=== PATIENT | male | born 1985 | race Caucasian/White ===

== ENCOUNTER 2020-08-12 06:06 | Day surgery (SDC) | payer OTHER, SELFPAY ==
[2020-08-07 11:06] VITALS: BMI 27.4
== END 2020-08-12 23:59 ==
LOC: HO.SSS 06:07
PROVIDERS: Visit Provider Urology
DX: N47.1 Phimosis (principal); Z53.9 Procedure and treatment not carried out, unspecified reason

== ENCOUNTER 2020-10-02 11:12 | Outpatient (REF) | payer OTHER, SELFPAY | END 2020-10-02 11:13 | disposition home or self-care (01) | LOC: HO.LAB 11:12 | PROVIDERS: PCP Internal Medicine; Visit Provider Internal Medicine | DX: Z20.828 Contact with and (suspected) exposure to other viral communicable diseases (principal) | CPT/HCPCS: C9803; U0003 ==

== ENCOUNTER 2021-10-18 01:09 | Emergency (ER) | payer OTHER, SELFPAY ==
--- NOTE | ~2021-10-18 | XR_ITS ---
EXAMINATION: XR CHEST CLINICAL INFORMATION: Shortness of breath COMPARISON: 09.23.2015 TECHNIQUE: Frontal view of the chest was obtained. FINDINGS: No significant abnormality is noted involving the heart, lungs, mediastinum, bony thorax or soft tissues. XR/XR chest 1V IMPRESSION: Unremarkable examination.
[2021-10-18 01:34] VITALS: BP 101/74; PULSE 94; RESP 20; TEMP 36.3; O2SAT 98; BMI 26.6
--- NOTE | 2021-10-18 01:41 | ED_ITS ---
HPI - URI/Sore Throat General Chief Complaint: Upper Respiratory Symptoms Stated Complaint: sob, COVID+ as of 10/14 Time Seen by Provider: 10/18/21 01:40 Source: patient Limitations: no limitations History of Present Illness HPI Narrative: This is a 36-year-old male who became ill 3 days ago with a cough and fever and cold symptoms. The patient has tested positive for COVID. States the fevers have mostly past. Today he noted at times that he felt like he could not quite catch his breath. He denies chest pain per se. He was coughing more yesterday. He denies any vomiting or diarrhea or abdominal pain Related Data Home Medications Medication Instructions Recorded Confirmed No Known Home Meds 08/07/20 08/07/20 Allergies Allergy/AdvReac Type Severity Reaction Status Date / Time No Known Allergies Allergy Verified 10/18/21 01:37 [No Known Allergies*] Review of Systems Constitutional: Constitutional: Reports fatigue and Reports fever(s) Eyes: Eyes: Reports no additional eye complaints ENT: Reports nasal congestion Cardiovascular: Cardiovascular: Reports no additional cardiovascular complaints and Reports dyspnea Respiratory: Respiratory: Reports cough and Reports dyspnea Gastrointestinal: Gastrointestinal: Reports no additional gastrointestinal complaints Neurologic: Denies Sensory deficit (Neuro) Endocrine: Endocrine: Reports fatigue [facility] Past Medical History Medical History (Updated 10/18/21 @ 01:56 by Erick Wallace MD) Anxiety Renal stones Surgical History (Updated 08/07/20 @ 11:03 by Priscilla Drake RN) Hx of cystoscopy Social History Social History Advance Directives: No Physical Exam Vital Signs: Vital Signs: Last Vital Signs Temp 97.4 F 10/18/21 01:34 Pulse 94 10/18/21 01:34 Resp 20 10/18/21 01:34 BP 101/74 10/18/21 01:34 Pulse Ox 98 10/18/21 01:34 BMI result Body Mass Index 26.6 Const: General: cooperative, no acute distress and alert Orientation/consciousness: patient oriented x3 HENMT: Head: Yes normal to inspection Eyes: General: appearance normal, both eyes and all related structures Eyelids: Yes eyelids normal Conjunctivae: conjunctivae normal Pupils: Equal, round and reactive pupils present Neck: Neck: Yes normal visual inspection and Yes supple Chest: Chest palpation & inspection: normal inspection of the chest Resp: Effort & Inspection: normal respiratory effort Auscultation: clear to auscultation bilaterally Cardio: Rate: regular rate Rhythm: regular rhythm Heart sounds: S1 normal heart sound present, S2 normal heart sound present, no gallops, no murmurs and no rubs GI: Palpation (GI): Soft to palpation, nontender and Other GI palpation findin gs present (Non-distended) Auscultation: normal bowel sounds Skin: General skin exam: no rashes or lesions noted Neuro: General: patient oriented x3, no focal motor deficits and CN's II-XI intact bilaterally Cranial nerves: Yes Equal, round and reactive pupils present Cognition (Neuro): normal cognition Motor exam (neuro): 5/5 motor strength present throughout Sensory Exam: No Sensory deficit (Neuro) Extrem: General: Yes normal to inspection and Yes no pedal edema Psych: Appearance: grossly normal Affect: normal affect MDM - URI/Sore Throat MDM Narrative Medical decision making narrative: Patient with COVID for 3 days, felt somewhat dyspneic today but also appears somewhat anxious. Pulse oximetry 98% on room air. Chest x-ray negative. Patient is safe for outpatient follow-up Imaging Data Chest x-ray: Radiologist's impression: FINDINGS: No significant abnormality is noted involving the heart, lungs, mediastinum, bony thorax or soft tissues. XR/XR chest 1V IMPRESSION: Unremarkable examination. ? Discharge Plan Discharge Clinical Impression: COVID-19 Patient Disposition: Home, Self-Care Instructions: COVID-19 (Coronavirus Disease 2019) (ED) Additional Instructions: Drink plenty of fluids. Quarantine for another 3-4 days. Use [id number] cough medicine such as Robitussin DM as needed. Use Tylenol for any aches or fever. Return for any worsened symptoms such as or shortness of breath. Consider purchasing a pulse oximeter so you can check your oxygen level once or twice a day. Your oxygen level tonight was excellent at 98%, and your chest x- ray was normal. Prescriptions: No Action No Known Home Meds RF: 0
== END 2021-10-18 02:10 | disposition home or self-care (01) ==
PROVIDERS: Emergency Provider Emergency Medicine; PCP Internal Medicine
DX: U07.1 COVID-19 (principal); R06.02 Shortness of breath; R50.9 Fever, unspecified
CPT/HCPCS: 71045; 99283

== ENCOUNTER 2021-10-21 04:16 | Emergency (ER) | payer OTHER, SELFPAY ==
[2021-10-21 04:44] VITALS: BP 122/93; PULSE 74; RESP 20; TEMP 36.3; O2SAT 100; BMI 25.7
[2021-10-21 05:03] LABS: MANUAL DIFF FLAG NO
[2021-10-21 05:05] LABS: Basophils Percent Auto 0.3 % (0-2); Eosinophils Absolute Auto 0.1 X10*3/uL (0.0-0.4); Eosinophils Percent Auto 2.5 % (0-4); Hematocrit 50.2 % (42.0-52.0); Hemoglobin 17.2 g/dl (14.0-18.0); Imm Gran Abs Auto 0.01 X10*3/uL (0.00-0.03); Imm Gran Pct Auto 0.3 % (0.0-0.4); Lymphocytes Percent Auto 53.7 % (20-40); Mean Corpuscular HGB Conc 34.3 g/dl (31.0-36.0); Mean Corpuscular Hemoglobin 29.1 pg (27.0-33.0); Mean Corpuscular Volume 84.9 fL (80.0-98.0); Mean Platelet Volume 9.2 fL (9.4-12.4); Monocytes Absolute Auto 0.4 X10*3/uL (0.1-1.2); Monocytes Percent Auto 10.2 % (2-11); Neutrophils Absolute Auto 1.2 x10*3/uL (2.0-8.3); Platelet Count 228 X10*3/uL (160-400); Red Blood Count 5.91 X10*6/uL (4.60-5.80); Red Cell Distribution Width 12.8 % (11.0-16.0); White Blood Count 3.6 X10*3/uL (4.8-10.8)
[2021-10-21 05:11] LABS: COVID-19 Test Positive (Negative)
[2021-10-21 05:29] LABS: Alanine Aminotransferase 110 U/L (0-40); Albumin Level 4.4 g/dL (3.5-5.0); Alkaline Phosphatase 93 U/L (39-117); Anion Gap 13 (12-20); Aspartate Amino Transferase 52 U/L (5-37); Bilirubin Total 0.9 mg/dL (0.0-1.0); Blood Urea Nitrogen 13 mg/dL (9-16); Calcium 9.3 mg/dL (8.4-10.2); Carbon Dioxide 28 mmol/L (22-29); Chloride 103 mmol/L (96-108); Creatinine Clr Calc Pharmacy 87.2; Estimated Glomerular Filt Rate > 60; Glucose Random 122 mg/dL (60-115); Lipase 18 U/L (8-78); Potassium 3.8 mmol/L (3.3-5.1); Sodium 140 mmol/L (135-145); Total Protein 7.2 g/dL (6.5-8.0)
== END 2021-10-21 06:24 | disposition left against medical advice (07) ==
PROVIDERS: Emergency Provider Emergency Medicine; PCP Internal Medicine
DX: R10.31 Right lower quadrant pain (principal); R11.0 Nausea; R31.9 Hematuria, unspecified; R30.0 Dysuria; M54.50 Low back pain, unspecified; Z20.822 Contact with and (suspected) exposure to COVID-19; Z79.899 Other long term (current) drug therapy
CPT/HCPCS: 36415; 80053; 83690; 85025; 87635; 99282; 99283

== ENCOUNTER 2021-10-21 07:56 | Emergency (ER) | payer OTHER, SELFPAY ==
--- NOTE | ~2021-10-21 | CT_ITS ---
EXAMINATION: CT ABDOMEN AND PELVIS WITHOUT CONTRAST CLINICAL INFORMATION: Right flank pain COMPARISON: Previous CT of the abdomen and pelvis most recent May 2020 TECHNIQUE: Multidetector volumetric imaging was performed from the superior aspect of the liver through the pubic symphysis. Sagittal and coronal reformatted images were obtained on the technologist's workstation. This CT examination was performed using dose optimization techniques as appropriate, variously including the following: *Automated exposure control *Adjustment of mA and/or kV according to patient size (this includes techniques or standardized protocols for targeted exams where dose is matched to indication/reason for exam; i.e. extremities or head) *Use of iterative reconstruction technique DLP: 505 mGy-cm FINDINGS: LUNG BASES: There are patchy peripheral groundglass opacities seen at the lung bases. This is a nonspecific appearance however Covid infection should be excluded. This is new from previous chest CT. LIVER, GALLBLADDER, AND BILIARY TREE: The liver is normal in size, shape, and attenuation. Small stable liver lesion peripheral right lobe. No biliary ductal dilatation is present. The gallbladder is unremarkable with no evidence of radiopaque gallstones, gallbladder wall thickening, or obvious pericholecystic inflammatory changes. PANCREAS: Unremarkable. SPLEEN: Unremarkable. ADRENAL GLANDS: Unremarkable. KIDNEYS AND URETERS: There are multiple bilateral renal stones. Largest stone measures 5 x 6 mm in the upper pole of the right kidney. There is mild right hydronephrosis and proximal ureteral dilatation from a 3 x 4 mm right mid ureteral stone BLADDER: Unremarkable. GASTROINTESTINAL TRACT: The small and large bowel are unremarkable. The appendix is unremarkable. ABDOMINAL WALL: No significant hernia is appreciated. LYMPH NODES: Normal. VASCULAR: Unremarkable. PELVIC VISCERA: Unremarkable. OSSEOUS STRUCTURES: Unremarkable. CT/CT abdomen pelvis wo con IMPRESSION: Bilateral renal stones. Mild right hydronephrosis and ureteral dilatation from a 3 x 4 mm right mid ureteral stone Peripheral groundglass opacities at the lung bases. This is a nonspecific finding however Covid infection should be excluded. Fleischner guidelines were followed.
[2021-10-21 07:59] VITALS: BP 149/99; PULSE 88; RESP 19; TEMP 36.1; O2SAT 98; BMI 27.4
--- NOTE | 2021-10-21 08:32 | ED_ITS ---
HPI - Male Genitourinary General Chief complaint: Urogenital-Male Stated complaint: Kidney stones Time Seen by Provider: 10/21/21 08:32 Source: patient Mode of arrival: ambulatory History of Present Illness HPI Narrative: this is a 36 years old patient presented to the ED with a chief complaint of right flank pain since yesterday, he states that he has history of kidney stone is been vomiting as well MD Complaint: dysuria Onset (ago): day(s) (1) Severity: moderate Severity scale (1-10): 5 Quality: aching Relieving factors: none and urination Exacerbating factors: none Context: new medication Related Data Previous Rx's Medication Instructions Recorded ibuprofen 800 mg tablet 800 mg PO TID PRN #20 tab 10/21/21 oxycodone-acetaminophen 5 mg-325 1 tab PO Q8H PRN #15 tab 10/21/21 mg tablet (Percocet) tamsulosin 0.4 mg capsule (Flomax) 0.4 mg PO DAILY #10 cap 10/21/21 Allergies Allergy/AdvReac Type Severity Reaction Status Date / Time No Known Allergies Allergy Verified 10/21/21 04:47 [No Known Allergies*] Review of Systems Review of Systems: Yes all other systems are reviewed and are negative Constitutional: Constitutional: Reports no additional constitutional complaints ENT: Reports system reviewed and no additional complaints, except as documented Musculoskeletal: Musculoskeletal: Reports no additional musculoskeletal complaints PMFSH Past Medical History Medical History Anxiety Renal stones Surgical History Hx of cystoscopy Social History Social History Alcohol intake: unknown Patient Tobacco Use Status: Tobacco use Unknown Use of substances other than those prescribed or required for medical reasons: Unknown Advance Directives: No Advance Directives Information Provided: No Physical Exam Vital Signs: Vital Signs: Last Vital Signs Temp 97 F 10/21/21 07:59 Pulse 88 10/21/21 07:59 Resp 19 10/21/21 07:59 BP 149/99 H 10/21/21 07:59 Pulse Ox 98 10/21/21 07:59 BMI result Body Mass Index 27.4 Const: General: cooperative and alert Nutritional Appearance: average body habitus Orientation/consciousness: patient oriented x3 Limitations: no limitations HENMT: Head: Yes normal to inspection General nose exam: Normal external nose present Face and sinus: Yes normal facial exam Throat: Yes posterior oropharynx normal Neck: Neck: Yes normal visual inspection, Yes full ROM and Yes no lympha denopathy Thyroid: Thyroid normal Chest: Chest palpation & inspection: normal inspection of the chest Resp: Effort & Inspection: normal respiratory effort and able to speak in complete sentences Auscultation: clear to auscultation bilaterally Cardio: Jugular venous distension: no JVD Rate: regular rate Rhythm: regular rhythm GI: Inspection: Yes normal to inspection Palpation (GI): Soft to palpation, not firm, nontender and Other GI palpation findings present (tenderness rt flank) Neuro: General: patient oriented x3 Course Reevaluation(s) Reevaluation #1: reexamined and 11:05 feeling much better Reevaluation #2: pain free at this time will d/c home MDM - Male Genitourinary Lab Data Result diagrams: 10/21/21 08:54 10/21/21 08:54 Labs: Lab Results 10/21/21 10/21/21 10/21/21 Range/Units 08:54 08:54 12:23 WBC 5.7 (4.8-10.8) X10*3/uL RBC 6.10 H (4.60-5.80) X10*6/uL Hgb 17.4 (14.0-18.0) g/dl Hct 51.8 (42.0-52.0) % MCV 84.9 (80.0-98.0) fL MCH 28.5 (27.0-33.0) pg MCHC 33.6 (31.0-36.0) g/dl RDW 12.8 (11.0-16.0) % Plt Count 232 (160-400) X10*3/uL MPV 9.0 L (9.4-12.4) fL Immature Gran % (Auto) 0.2 (0.0-0.4) % Neut % (Auto) 81.5 H (45-73) % Lymph % (Auto) 12.9 L (20-40) % [place] % (Auto) 5.2 (2-11) % Eos % (Auto) 0.0 (0-4) % Baso % (Auto) 0.2 (0-2) % Lymph # (Auto) 0.7 L (1.2-4.9) X10*3/uL [place] # (Auto) 0.3 (0.1-1.2) X10*3/uL Eos # (Auto) 0.0 (0.0-0.4) X10*3/uL Baso # (Auto) 0.0 (0.0-0.2) X10*3/uL Abs Immat Gran (auto) 0.01 (0.00-0.03) X10*3/uL Absolute Neuts (auto) 4.7 (2.0-8.3) x10*3/uL Absolute Nucleated RBC 0.000 (0.0-0.012) X10*3/uL Nucleated RBC % (auto) 0.0 (0.0-0.2) /100WBC Sodium 140 (135-145) mmol/L Potassium 4.6 D (3.3-5.1) mmol/L Chloride 102 (96-108) mmol/L Carbon Dioxide 30 H (22-29) mmol/L Anion Gap 13 (12-20) BUN 15 (9-16) mg/dL Creatinine 1.15 (0.5-1.4) mg/dL Estim Creat Clear Calc 83.9 Estimated GFR > 60 Random Glucose 132 H (60-115) mg/dL Calcium 9.5 (8.4-10.2) mg/dL Total Bilirubin 1.0 (0.0-1.0) mg/dL AST 50 H (5-37) U/L ALT 111 H (0-40) U/L Alkaline Phosphatase 94 (39-117) U/L Total Protein 7.5 (6.5-8.0) g/dL Albumin 4.6 (3.5-5.0) g/dL Urine Color YELLOW Urine Appearance CLEAR Urine pH 6.0 (5.0-8.0) Ur Specific [place] 1.025 (1.005-1.025) Urine Protein 1+ H (NEG-TRACE) MG/DL Urine Glucose (UA) NEG (NEG) MG/DL Urine Ketones 5 (NEG) MG/DL Urine Blood 2+ H (NEG) Urine Nitrite NEG (NEG) Ur Leukocyte Esterase NEG (NEG) Urine RBC 10-14 H (0) /HPF Urine WBC 0-2 (0-4) /HPF Ur Squamous Epith Cells TRACE /LPF Amorphous Sediment 1+ /LPF Urine Bacteria NONE /LPF Urine Mucus 1+ /LPF Imaging Data CT scan - abdomen: Radiologist's impression: ADRENAL GLANDS: Unremarkable.? KIDNEYS AND URETERS: There are multiple bilateral renal stones. Largest stone measures 5 x 6 mm in the upper pole of the right kidney. There is mild right hydronephrosis and proximal ureteral dilatation from a 3 x 4 mm right mid ureteral stone BLADDER: Unremarkable.? GASTROINTESTINAL TRACT: The small and large bowel are unremarkable. The appendix is unremarkable.? ABDOMINAL WALL: No significant hernia is appreciated.? LYMPH NODES: Normal. VASCULAR: Unremarkable. PELVIC VISCERA: Unremarkable.? OSSEOUS STRUCTURES: Unremarkable.? CT/CT abdomen pelvis wo con IMPRESSION: Bilateral renal stones. Mild right hydronephrosis and ureteral dilatation from a 3 x 4 mm right mid ureteral stone ? Peripheral groundglass opacities at the lung bases. This is a nonspecific finding however Covid infection should be excluded. ? Fleischner guidelines were followed. Discharge Plan Discharge Clinical Impression: Renal colic on right side Patient Disposition: Home, Self-Care Instructions: Renal Colic (ED) Prescriptions: New tamsulosin [Flomax] 0.4 mg capsule 0.4 mg PO DAILY Qty: 10 RF: 0 oxycodone-acetaminophen [Percocet] 5-325 mg tablet 1 tab PO Q8H PRN (Reason: pain) Qty: 15 RF: 0 ibuprofen 800 mg tablet 800 mg PO TID PRN (Reason: pain) Qty: 20 RF: 0 Referrals: Juan Contreras MD [Physician] - 2 days
[2021-10-21 08:59] LABS: MANUAL DIFF FLAG NO
[2021-10-21] MEDS: ondansetron HCL 4 MG/2 ML VIAL IVPUSH (09:01)
[2021-10-21] MEDS: 0.9 % Sodium Chloride 1,000 ML 999 ML IVCONT ×2 (09:01→11:11)
[2021-10-21] MEDS: Ketorolac Tromethamine 30 MG/ML VIAL IVPUSH (09:01)
[2021-10-21 09:03] LABS: Basophils Percent Auto 0.2 % (0-2); Hematocrit 51.8 % (42.0-52.0); Hemoglobin 17.4 g/dl (14.0-18.0); Imm Gran Abs Auto 0.01 X10*3/uL (0.00-0.03); Imm Gran Pct Auto 0.2 % (0.0-0.4); Lymphocytes Absolute Auto 0.7 X10*3/uL (1.2-4.9); Lymphocytes Percent Auto 12.9 % (20-40); Mean Corpuscular HGB Conc 33.6 g/dl (31.0-36.0); Mean Corpuscular Hemoglobin 28.5 pg (27.0-33.0); Mean Corpuscular Volume 84.9 fL (80.0-98.0); Monocytes Absolute Auto 0.3 X10*3/uL (0.1-1.2); Monocytes Percent Auto 5.2 % (2-11); Neutrophils Absolute Auto 4.7 x10*3/uL (2.0-8.3); Neutrophils Percent Auto 81.5 % (45-73); Platelet Count 232 X10*3/uL (160-400); Red Cell Distribution Width 12.8 % (11.0-16.0); White Blood Count 5.7 X10*3/uL (4.8-10.8)
[2021-10-21 09:24] LABS: Alanine Aminotransferase 111 U/L (0-40); Albumin Level 4.6 g/dL (3.5-5.0); Alkaline Phosphatase 94 U/L (39-117); Anion Gap 13 (12-20); Aspartate Amino Transferase 50 U/L (5-37); Blood Urea Nitrogen 15 mg/dL (9-16); Calcium 9.5 mg/dL (8.4-10.2); Carbon Dioxide 30 mmol/L (22-29); Chloride 102 mmol/L (96-108); Creatinine Clr Calc Pharmacy 83.9; Estimated Glomerular Filt Rate > 60; Glucose Random 132 mg/dL (60-115); Potassium 4.6 mmol/L (3.3-5.1); Sodium 140 mmol/L (135-145); Total Protein 7.5 g/dL (6.5-8.0)
[2021-10-21] MEDS: HYDROmorphone HCl 0.5 MG/0.5 ML SYRINGE IVPUSH ×2 (10:06→11:57)
--- NOTE | 2021-10-21 10:19 | PC.NURSE ---
medicatd further per emar, feeling better after dilaudid. wctm for dc needs.
[2021-10-21] MEDS: Tamsulosin HCL 0.4 MG CAPSULE PO (11:57)
[2021-10-21 12:29] LABS: Appearance Urine CLEAR; Color Urine YELLOW; Glucose Urine UA NEG (NEG); Leukocyte Esterase Urine NEG (NEG); Nitrite Urine NEG (NEG); Specific Gravity - Urine 1.025 (1.005-1.025); UACC Culture Trigger NO; Urine Blood 2+ (NEG); Urine Ketones 5 MG/DL (NEG); Urine Protein 1+ MG/DL (NEG-TRACE)
[2021-10-21 12:46] LABS: Squamous Epithelial Cell Urine TRACE /LPF
[2021-10-21 12:47] LABS: WBC Urine 0-2 /HPF (0-4)
[2021-10-21 12:48] LABS: Amorphous Sediment Urine 1+ /LPF; Mucus Urine 1+ /LPF
--- NOTE | 2021-10-21 13:37 | ED.MALEGU ---
HPI - Male Genitourinary General Chief complaint: Urogenital-Male Stated complaint: Kidney stones Time Seen by Provider: 10/21/21 08:32 Source: patient Mode of arrival: ambulatory History of Present Illness Severity: moderate Quality: aching Relieving factors: none and urination Exacerbating factors: none Related Data Previous Rx's Medication Instructions Recorded ibuprofen 800 mg tablet 800 mg PO TID PRN #20 tab 10/21/21 oxycodone-acetaminophen 5 mg-325 1 tab PO Q8H PRN #15 tab 10/21/21 mg tablet (Percocet) tamsulosin 0.4 mg capsule (Flomax) 0.4 mg PO DAILY #10 cap 10/21/21 Allergies Allergy/AdvReac Type Severity Reaction Status Date / Time No Known Allergies Allergy Verified 10/21/21 04:47 [No Known Allergies*] PMFSH Past Medical History Medical History Anxiety Renal stones Surgical History Hx of cystoscopy Social History Social History Alcohol intake: unknown Patient Tobacco Use Status: Tobacco use Unknown Use of substances other than those prescribed or required for medical reasons: Unknown Advance Directives: No Advance Directives Information Provided: No Physical Exam Vital Signs: Vital Signs: Last Vital Signs Temp 97 F 10/21/21 07:59 Pulse 88 10/21/21 07:59 Resp 19 10/21/21 07:59 BP 149/99 H 10/21/21 07:59 Pulse Ox 98 10/21/21 07:59 BMI result Body Mass Index 27.4 Course Reevaluation(s) Reevaluation #1: pain free at this time,tolerated po well ct showed 3X4 mm stone mild rt hydro MDM - Male Genitourinary Lab Data Result diagrams: 10/21/21 08:54 10/21/21 08:54 Labs: Lab Results 10/21/21 10/21/21 10/21/21 Range/Units 08:54 08:54 12:23 WBC 5.7 (4.8-10.8) X10*3/uL RBC 6.10 H (4.60-5.80) X10*6/uL Hgb 17.4 (14.0-18.0) g/dl Hct 51.8 (42.0-52.0) % MCV 84.9 (80.0-98.0) fL MCH 28.5 (27.0-33.0) pg MCHC 33.6 (31.0-36.0) g/dl RDW 12.8 (11.0-16.0) % Plt Count 232 (160-400) X10*3/uL MPV 9.0 L (9.4-12.4) fL Immature Gran % (Auto) 0.2 (0.0-0.4) % Neut % (Auto) 81.5 H (45-73) % Lymph % (Auto) 12.9 L (20-40) % [place] % (Auto) 5.2 (2-11) % Eos % (Auto) 0.0 (0-4) % Baso % (Auto) 0.2 (0-2) % Lymph # (Auto) 0.7 L (1.2-4.9) X10*3/uL [place] # (Auto) 0.3 (0.1-1.2) X10*3/uL Eos # (Auto) 0.0 (0.0-0.4) X10*3/uL Baso # (Auto) 0.0 (0.0-0.2) X10*3/uL Abs Immat Gran (auto) 0.01 (0.00-0.03) X10*3/uL Absolute Neuts (auto) 4.7 (2.0-8.3) x10*3/uL Absolute Nucleated RBC 0.000 (0.0-0.012) X10*3/uL Nucleated RBC % (auto) 0.0 (0.0-0.2) /100WBC Sodium 140 (135-145) mmol/L Potassium 4.6 D (3.3-5.1) mmol/L Chloride 102 (96-108) mmol/L Carbon Dioxide 30 H (22-29) mmol/L Anion Gap 13 (12-20) BUN 15 (9-16) mg/dL Creatinine 1.15 (0.5-1.4) mg/dL Estim Creat Clear Calc 83.9 Estimated GFR > 60 Random Glucose 132 H (60-115) mg/dL Calcium 9.5 (8.4-10.2) mg/dL Total Bilirubin 1.0 (0.0-1.0) mg/dL AST 50 H (5-37) U/L ALT 111 H (0-40) U/L Alkaline Phosphatase 94 (39-117) U/L Total Protein 7.5 (6.5-8.0) g/dL Albumin 4.6 (3.5-5.0) g/dL Urine Color YELLOW Urine Appearance CLEAR Urine pH 6.0 (5.0-8.0) Ur Specific [place] 1.025 (1.005-1.025) Urine Protein 1+ H (NEG-TRACE) MG/DL Urine Glucose (UA) NEG (NEG) MG/DL Urine Ketones 5 (NEG) MG/DL Urine Blood 2+ H (NEG) Urine Nitrite NEG (NEG) Ur Leukocyte Esterase NEG (NEG) Urine RBC 10-14 H (0) /HPF Urine WBC 0-2 (0-4) /HPF Ur Squamous Epith Cells TRACE /LPF Amorphous Sediment 1+ /LPF Urine Bacteria NONE /LPF Urine Mucus 1+ /LPF Imaging Data CT scan - abdomen: Radiologist's impression: dilatation from a 3 x 4 mm right mid ureteral stone BLADDER: Unremarkable.? GASTROINTESTINAL TRACT: The small and large bowel are unremarkable. The appendix is unremarkable.? ABDOMINAL WALL: No significant hernia is appreciated.? LYMPH NODES: Normal. VASCULAR: Unremarkable. PELVIC VISCERA: Unremarkable.? OSSEOUS STRUCTURES: Unremarkable.? CT/CT abdomen pelvis wo con IMPRESSION: Bilateral renal stones. Mild right hydronephrosis and ureteral dilatation from a 3 x 4 mm right mid ureteral stone ? Peripheral groundglass opacities at the lung bases. This is a nonspecific finding however Covid infection should be excluded. ? Fleischner guidelines were followed. Dictated By: Hortensia Arevalo MD Signed By: <Electronically signed by Hortensia Arevalo MD in [place]> 10/21/2137 DD/ 7 TD/TT:? 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
== END 2021-10-21 13:57 | disposition home or self-care (01) ==
PROVIDERS: Emergency Provider Emergency Medicine; PCP Internal Medicine
DX: N23 Unspecified renal colic (principal); Z79.899 Other long term (current) drug therapy
CPT/HCPCS: 36415; 74176; 80053; 81001; 85025; 96361; 96374; 96375; 96376; 99284; 99285; J1170; J1885; J2405

== ENCOUNTER 2022-04-30 12:40 | Emergency (ER) | payer OTHER, SELFPAY ==
--- NOTE | ~2022-04-30 | XR_ITS ---
EXAMINATION: XR CHEST CLINICAL INFORMATION: Chest pain. COMPARISON: 10/28/2021 chest radiograph. TECHNIQUE: Frontal view of the chest was obtained. FINDINGS: No significant abnormality is noted involving the heart, lungs, mediastinum, bony thorax or soft tissues. XR/XR chest 1V IMPRESSION: No acute cardiopulmonary process.
[2022-04-30 12:45] VITALS: BP 116/76; PULSE 80; RESP 16; TEMP 36.9; O2SAT 97; BMI 28.3
--- NOTE | 2022-04-30 12:47 | ECG_ITS ---
Test Reason : hi heartrate Blood Pressure : / mmHG Vent. Rate : 125 BPM Atrial Rate : 125 BPM P-R Int : 160 ms QRS Dur : 092 ms QT Int : 294 ms P-R-T Axes : 037 080 003 degrees QTc Int : 424 ms Sinus tachycardia Nonspecific ST and T wave abnormality Abnormal ECG When compared with ECG of 27-JAN-2020 19:03, No significant change was found Referred By: Generic ED Physician Electronically Signed By:AGA URBINA
--- NOTE | 2022-04-30 16:13 | ED_ITS ---
HPI - Chest Pain General Chief Complaint: Chest Pain Stated Complaint: dizziness/chest tightness Time Seen by Provider: 04/30/22 16:12 Source: patient Mode of arrival: ambulatory Limitations: no limitations History of Present Illness HPI narrative: 37-year-old male presents to the emergency department with complaints of chest pain and shortness of breath since lunch time today. Patient tells me that the chest pain is localized to the anterior chest wall, without radiation he tells me that initially it was sharp now it has resolved. Patient initially had shortness of breath with the chest pain but it resolved aswell. Patient tells me that did chest pain started at rest, he tells me that he has not been feeling right, with poor appetite over the past 2 days as well. Patient denies any drugs, alcohol or tobacco. 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 Patient denies any personal or family cardiac history. Patient denies headache, dizziness, vision changes marked, fevers, chills. MD complaint: chest pain Onset (ago): day(s) (1) Timing of current episode: episodic Prior episodes: No Pain location: substernal Pain radiation: none Severity: severe Quality: aching Exacerbating factors: nothing Treatment prior to arrival: none Related Data Previous Rx's Medication Instructions Recorded ibuprofen 800 mg tablet 800 mg PO TID PRN pain #20 tabs 10/21/21 oxycodone-acetaminophen 5 mg-325 1 tab PO Q8H PRN pain #15 tabs 10/21/21 mg tablet (Percocet) tamsulosin 0.4 mg capsule (Flomax) 0.4 mg PO DAILY #10 caps 10/21/21 Allergies Allergy/AdvReac Type Severity Reaction Status Date / Time No Known Allergies Allergy Verified 10/21/21 04:47 [No Known Allergies*] Review of Systems Review of Systems: Constitutional : No Weight loss, No Fever, No Chills, No Fatigue, No Malaise ENT/Mouth : No sore throat, No Rhinorrhea Eyes: No Eye Pain, No Swelling, No Redness Cardiovascular : + Chest Pain, No SOB, No Dyspnea on Exertion, No Orthopnea, No Edema, No Palpitations Respiratory : No Cough, No Sputum, No Wheezing Gastrointestinal : No Nausea, No Vomiting, No Diarrhea, No Constipation, No abdominal Pain, No Hematochezia, No Melena Genitourinary : No Dysuria, No Urinary Frequency, No Hematuria, Musculoskeletal : No joint pain, No Myalgias, No Joint Swelling Skin : No Skin Lesions, No rash Neuro : No Weakness, No Numbness, No Dizziness, No Headache All other systems reviewed and are negative Yes all other systems are reviewed and are negative [facility] [place] Past Medical History Attestation statement: The following information was validated with the patient. Source: old records reviewed and nursing notes reviewed Medical History Anxiety Renal stones Surgical History Hx of cystoscopy Social History Social History Alcohol intake: unknown Patient Tobacco Use Status: Tobacco use Unknown Advance Directives: No Advance Directives Information Provided: No Physical Exam Vital Signs: Vital Signs: Last Vital Signs Temp 98.4 F 04/30/22 12:45 Pulse 80 04/30/22 12:45 Resp 16 04/30/22 12:45 BP 116/76 04/30/22 12:45 Pulse Ox 97 04/30/22 12:45 O2 Del Method 04/30/22 12:45 BMI result Body Mass Index 28.3 vss Appearance: Alert.? Oriented X3.? No acute distress.? Head: Normocephalic, atraumatic, no step-offs or deformities Eyes: Pupils equal, round and reactive to light.? ENT: Pharynx normal.? Neck: Normal inspection.? Neck supple.? CVS: Normal heart rate and rhythm.? Pulses normal.?+ anterior chest wall pain on palpation Respiratory: No respiratory distress.? Breath sounds normal.? Abdomen: Soft and nontender.? Skin: Skin warm and dry.? Normal skin color.? Normal skin turgor.? Extremities: No lower extremity edema.? No calf ttp, negative Vidal bilaterally. 5/5 strength to bilateral upper and lower extremities Neuro: Oriented X 3.? No motor deficit.? No sensory deficit. CN 2-12 intact Course Reevaluation(s) Reevaluation #1: CBC appears to be within normal limits. Chemistry with no acute electrolyte abnormalities. Troponin negative. EKG nonischemic. Bilirubin slightly elevated however no tenderness to palpation of abdomen. COVID negative. Patient's heart rate improved, now 83 and in a sinus rhythm on the monitor. Likely diagnosis anxiety or chostochondirits, there is low suspicion for ACS. Unlikely PE. At this time patient reports no chest pain, feeling much better. He will be discharged home advised return with new or worsening symptoms. Time: 17:45 MDM - Chest Pain MDM Narrative Medical decision making narrative: 1615 37-year-old male presenting to the emergency department with chest discomfort, weakness and shortness of breath which occured around lunchtime and has since resolved. Physical examination with reproducible anterior chest wall pain with palpation. Negative Vidal bilaterally. Regular rate and rhythm. Lungs clear. Abdomen soft nontender nondistended. Neuro exam nonfocal. Unlikely ACS, unlikely PE. Patient is PERC negative. Likely costochondritis to anxiety. Plan at this time is to obtain a cardiac workup, basic labs, urine, EKG, cardiac monitoring. Medical Records Data Attestation: I reviewed the patient's medical records. Lab Data Attestation: I reviewed the patient's lab results. Result diagrams: 04/30/22 16:27 04/30/22 16:26 Labs: Lab Results 04/30/22 04/30/22 04/30/22 Range/Units 16:26 16:26 16:26 WBC (4.8-10.8) X10*3/uL RBC (4.60-5.80) X10*6/uL Hgb (14.0-18.0) g/dl Hct (42.0-52.0) % MCV (80.0-98.0) fL MCH (27.0-33.0) pg MCHC (31.0-36.0) g/dl RDW (11.0-16.0) % Plt Count (160-400) X10*3/uL MPV (9.4-12.4) fL Immature Gran % (Auto) (0.0-0.4) % Neut % (Auto) (45-73) % Lymph % (Auto) (20-40) % Baca % (Auto) (2-11) % Eos % (Auto) (0-4) % Baso % (Auto) (0-2) % Lymph # (Auto) (1.2-4.9) X10*3/uL Baca # (Auto) (0.1-1.2) X10*3/uL Eos # (Auto) (0.0-0.4) X10*3/uL Baso # (Auto) (0.0-0.2) X10*3/uL Abs Immat Gran (auto) (0.00-0.03) X10*3/uL Absolute Neuts (auto) (2.0-8.3) x10*3/uL Absolute Nucleated RBC (0.0-0.012) X10*3/uL Nucleated RBC % (auto) (0.0-0.2) /100WBC Sodium 139 (135-145) mmol/L Potassium 3.9 (3.3-5.1) mmol/L Chloride 104 (96-108) mmol/L Carbon Dioxide 26 (22-29) mmol/L Anion Gap 13 (12-20) BUN 10 (9-16) mg/dL Creatinine 0.83 (0.5-1.4) mg/dL Estim Creat Clear Calc 112.8 Estimated GFR > 60 Random Glucose 101 (60-115) mg/dL Calcium 9.6 (8.4-10.2) mg/dL Magnesium 1.9 (1.6-2.6) mg/dL Total Bilirubin 1.5 H (0.0-1.0) mg/dL AST 23 D (5-37) U/L ALT 45 H (0-40) U/L Alkaline Phosphatase 88 (39-117) U/L Troponin I High Sens < 3.5 (<3.5-35.0) ng/L Total Protein 7.4 (6.5-8.0) g/dL Albumin 4.7 (3.5-5.0) g/dL COVID-19 (JOSE J) Negative (Negative) COVID-19 Clin Com See Note 04/30/22 Range/Units 16:27 WBC 8.3 (4.8-10.8) X10*3/uL RBC 5.69 (4.60-5.80) X10*6/uL Hgb 16.4 (14.0-18.0) g/dl Hct 48.5 (42.0-52.0) % MCV 85.2 (80.0-98.0) fL MCH 28.8 (27.0-33.0) pg MCHC 33.8 (31.0-36.0) g/dl RDW 13.1 (11.0-16.0) % Plt Count 298 D (160-400) X10*3/uL MPV 9.3 L (9.4-12.4) fL Immature Gran % (Auto) 0.2 (0.0-0.4) % Neut % (Auto) 63.4 (45-73) % Lymph % (Auto) 28.6 (20-40) % Baca % (Auto) 5.3 (2-11) % Eos % (Auto) 2.1 (0-4) % Baso % (Auto) 0.4 (0-2) % Lymph # (Auto) 2.4 (1.2-4.9) X10*3/uL Baca # (Auto) 0.4 (0.1-1.2) X10*3/uL Eos # (Auto) 0.2 (0.0-0.4) X10*3/uL Baso # (Auto) 0.0 (0.0-0.2) X10*3/uL Abs Immat Gran (auto) 0.02 (0.00-0.03) X10*3/uL Absolute Neuts (auto) 5.2 (2.0-8.3) x10*3/uL Absolute Nucleated RBC 0.000 (0.0-0.012) X10*3/uL Nucleated RBC % (auto) 0.0 (0.0-0.2) /100WBC Sodium (135-145) mmol/L Potassium (3.3-5.1) mmol/L Chloride (96-108) mmol/L Carbon Dioxide (22-29) mmol/L Anion Gap (12-20) BUN (9-16) mg/dL Creatinine (0.5-1.4) mg/dL Estim Creat Clear Calc Estimated GFR Random Glucose (60-115) mg/dL Calcium (8.4-10.2) mg/dL Magnesium (1.6-2.6) mg/dL Total Bilirubin (0.0-1.0) mg/dL AST (5-37) U/L ALT (0-40) U/L Alkaline Phosphatase (39-117) U/L Troponin I High Sens (<3.5-35.0) ng/L Total Protein (6.5-8.0) g/dL Albumin (3.5-5.0) g/dL COVID-19 (JOSE J) (Negative) COVID-19 Clin Com ECG Data ECG #1: Attestation: I personally reviewed and interpreted this ECG as follows: ECG interpretation date: 04/30/22 ECG interpretation time: 17:46 Prior ECG tracings: available for review Interpretation: Ventricular rate of 125, NM normal, QRS normal, QT/QTC normal. EKG with sinus tachycardia, no ST elevations or inversions concerning for ischemia. No significant changes when compared to EKG from January 2020. Critical Care Time Critical Care Time Critical Care Time: No Discharge Plan Discharge Clinical Impression: Chest pain not due to acute coronary syndrome, Costochondritis, Anxiety Patient Disposition: Home, Self-Care Instructions: Chest Wall Pain (ED), Anxiety (ED), Costochondritis (ED) Additional Instructions: Take your medications as prescribed. If you were prescribed antibiotics today, it is important that you take your medication to their entirety, do not skip any doses, do not finish them early. Follow-up with your primary care provider this week. Return to the emergency department with new or worsening symptoms. Such as fevers, chills, chest pain, shortness of breath, nausea, vomiting, dizziness, headache, vision changes, lethargy In case of emergency call 911 You can take ibuprofen every 6 hours, Tylenol every 4 as needed for pain or discomfort. Prescriptions: No Action tamsulosin [Flomax] 0.4 mg capsule 0.4 mg PO DAILY Qty: 10 0RF oxycodone-acetaminophen [Percocet] 5-325 mg tablet 1 tab PO Q8H PRN (Reason: pain) Qty: 15 0RF Rx Instructions: partial filling upon pt request ibuprofen 800 mg tablet 800 mg PO TID PRN (Reason: pain) Qty: 20 0RF Referrals: Rachid Jarrett III, MD [Primary Care Provider] - 2 days Stand Alone Forms: Work/School Release
[2022-04-30 16:31] LABS: MANUAL DIFF FLAG NO
[2022-04-30 16:33] LABS: Basophils Percent Auto 0.4 % (0-2); Eosinophils Absolute Auto 0.2 X10*3/uL (0.0-0.4); Eosinophils Percent Auto 2.1 % (0-4); Hematocrit 48.5 % (42.0-52.0); Hemoglobin 16.4 g/dl (14.0-18.0); Imm Gran Abs Auto 0.02 X10*3/uL (0.00-0.03); Imm Gran Pct Auto 0.2 % (0.0-0.4); Lymphocytes Absolute Auto 2.4 X10*3/uL (1.2-4.9); Lymphocytes Percent Auto 28.6 % (20-40); Mean Corpuscular HGB Conc 33.8 g/dl (31.0-36.0); Mean Corpuscular Hemoglobin 28.8 pg (27.0-33.0); Mean Corpuscular Volume 85.2 fL (80.0-98.0); Mean Platelet Volume 9.3 fL (9.4-12.4); Monocytes Absolute Auto 0.4 X10*3/uL (0.1-1.2); Monocytes Percent Auto 5.3 % (2-11); Neutrophils Absolute Auto 5.2 x10*3/uL (2.0-8.3); Neutrophils Percent Auto 63.4 % (45-73); Platelet Count 298 X10*3/uL (160-400); Red Blood Count 5.69 X10*6/uL (4.60-5.80); Red Cell Distribution Width 13.1 % (11.0-16.0); White Blood Count 8.3 X10*3/uL (4.8-10.8)
--- NOTE | 2022-04-30 16:33 | PC.NURSE ---
Pt comes in with complaints of now resolved SSCP which began at 1200 while working. 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 Pt has has similar s/s in the past and was dx'd with anxiety. Pt is NSR/ST in the 90-100's on the monitor at this time. Denies CP now, abd soft, non tender, +BS, + pulses, LCA. IV established, labs drawn, call edwards within reach. Will continue to monitor.
[2022-04-30 16:47] LABS: COVID-19 Test Negative (Negative)
[2022-04-30 16:50] LABS: Alanine Aminotransferase 45 U/L (0-40); Albumin Level 4.7 g/dL (3.5-5.0); Alkaline Phosphatase 88 U/L (39-117); Anion Gap 13 (12-20); Aspartate Amino Transferase 23 U/L (5-37); Bilirubin Total 1.5 mg/dL (0.0-1.0); Blood Urea Nitrogen 10 mg/dL (9-16); Calcium 9.6 mg/dL (8.4-10.2); Carbon Dioxide 26 mmol/L (22-29); Chloride 104 mmol/L (96-108); Creatinine Clr Calc Pharmacy 112.8; Estimated Glomerular Filt Rate > 60; Glucose Random 101 mg/dL (60-115); Magnesium 1.9 mg/dL (1.6-2.6); Potassium 3.9 mmol/L (3.3-5.1); Sodium 139 mmol/L (135-145); Total Protein 7.4 g/dL (6.5-8.0)
[2022-04-30 16:57] LABS: Troponin-I High Sensitivity < 3.5 ng/L (<3.5-35.0)
== END 2022-04-30 18:04 | disposition home or self-care (01) ==
PROVIDERS: Physician Assistant; Emergency Provider Internal Medicine; PCP Internal Medicine
DX: R07.89 Other chest pain (principal); M94.0 Chondrocostal junction syndrome [Tietze]; F41.9 Anxiety disorder, unspecified; Z20.822 Contact with and (suspected) exposure to COVID-19; R06.02 Shortness of breath
CPT/HCPCS: 71045; 80053; 83735; 84484; 85025; 87635; 93005; 99283; 99284

== ENCOUNTER 2022-05-20 05:55 | Emergency (ER) | payer OTHER, SELFPAY ==
[2022-05-20 06:07] VITALS: BP 126/80; PULSE 100; RESP 17; TEMP 36.5; O2SAT 99; BMI 27.4
[2022-05-20 06:40] VITALS: BP 112/81; PULSE 91; RESP 16; TEMP 36.4; O2SAT 98
--- NOTE | 2022-05-20 07:43 | ED_ITS ---
HPI - Skin/Abscess/Foreign Bdy General Chief complaint: Skin/Abscess/Foreign Body Stated complaint: L side of face swollen Time Seen by Provider: 05/20/22 07:13 Source: patient Mode of arrival: ambulatory Limitations: no limitations History of Present Illness HPI narrative: 37-year-old male who presents emergency department for evaluation of left-sided facial swelling x2 days. Patient believes that he had an ingrown hair on his face that is now infected. He states that he picked his skin yesterday and got blood but no purulent material. States that the facial swelling has gotten worse today. States that the swelling is painful, it is a constant, pressure- like pain which is 8/10. He denied fever, chills, sore throat, chest pain, shortness of breath, fatigue. MD complaint: abscess/boil (Left face) Onset (ago): day(s) (2) Location: face Severity: severe Severity scale (1-10): 8 Quality: other (Pressure) Pain Consistency: constant Relieving factors: none Exacerbating factors: none Context: other (Ingrown hair) Associated symptoms: denies other symptoms Related Data Previous Rx's Medication Instructions Recorded ibuprofen 800 mg tablet 800 mg PO TID PRN pain #20 tabs 10/21/21 oxycodone-acetaminophen 5 mg-325 1 tab PO Q8H PRN pain #15 tabs 10/21/21 mg tablet (Percocet) tamsulosin 0.4 mg capsule (Flomax) 0.4 mg PO DAILY #10 caps 10/21/21 cephalexin 500 mg capsule 500 mg PO QID 7 days #28 caps 05/20/22 oxycodone 5 mg tablet 5 mg PO Q4H PRN pain #10 tabs 05/20/22 Allergies Allergy/AdvReac Type Severity Reaction Status Date / Time No Known Allergies Allergy Verified 10/21/21 04:47 [No Known Allergies*] Review of Systems Review of Systems: Yes all other systems are reviewed and are negative PMFSH Past Medical History Medical History Anxiety Renal stones Surgical History Hx of cystoscopy Social History Social History Alcohol intake: unknown Patient Tobacco Use Status: Tobacco use Unknown Advance Directives: No Physical Exam Vital Signs: Vital Signs: Last Vital Signs Temp 97.5 F 05/20/22 06:40 Pulse 91 05/20/22 06:40 Resp 16 05/20/22 06:40 BP 112/81 05/20/22 06:40 Pulse Ox 98 05/20/22 06:40 O2 Del Method 05/20/22 06:40 BMI result Body Mass Index 27.4 Const: General: cooperative and no acute distress Orientation/consciousness: oriented to person and oriented to place Limitations: no limitations HEENT: Other: Patient has a 4 x 6 cm area of swelling to his left face, the area swelling is erythematous and warm to the touch, there is a central area that has a yellow crust to it, there is no obvious skin breakdown, the area feels indurated as opposed to flocculence Ears: external ears normal General nose exam: Normal external nose present Mouth: Normal oral and palatal mucosa present and other Teeth and gingiva: other (Normal to) Throat: Yes posterior oropharynx normal and Yes other (Normal dentition and gingiva) Eyes: General: appearance normal, both eyes and all related structures Pupils: Equal, round and reactive pupils present Neck: Neck: Yes normal visual inspection, Yes no lymphadenopathy, Yes trachea midline and Yes supple Chest: Chest palpation & inspection: normal inspection of the chest and normal palpation of entire chest wall Resp: Effort & Inspection: normal respiratory effort and able to speak in complete sentences Auscultation: clear to auscultation bilaterally Cardio: Rate: regular rate Rhythm: regular rhythm Heart sounds: S1 normal heart sound present, S2 normal heart sound present and no murmurs GI: Inspection: Yes normal to inspection Palpation (GI): Soft to palpation, nontender and no guarding Auscultation: normal bowel sounds : General: Yes no CVA tenderness Back/Spine/Pelvis: Back: no CVA tenderness Skin: General skin exam: no rashes or lesions noted Neuro: General: oriented to person and oriented to place Cranial nerves: Yes CN's II-XII intact bilaterally and Yes Equal, round and reactive pupils present Cognition (Neuro): normal cognition Motor exam (neuro): 5/5 motor strength present throughout Extrem: General: Yes normal to inspection Psych: Appearance: grossly normal Speech and movement: Normal speech and movement present Affect: normal affect Attitude: cooperative Thought process: Normal thought process present Thought content: Normal thought content present Course Course Course Narrative: 37-year-old male who presents emergency department for evaluation of left facial swelling and pain x2 days. Patient believes that he had an ingrown hair. He states he did pick at his face and got blood but no pus out of the area that he picked. The patient does have increased warmth and erythema to his left zygomatic area of his face, the base appears to be indurated and the indurated area is approximately 4 x 6 cm. I did prep the patient's face with Betadine and anesthetized the central area with 2% lidocaine with epi. Using 18 gauge needle I probed the indurated area and was unable to express any purulent material. I did discuss this with the patient. The patient was given Keflex 500 mg orally and ibuprofen 600 mg orally. He was started on Keflex 500 mg 4 times a day for 7 days. He was also advised to take Tylenol and ibuprofen for pain and for pain not relieved by these medications he was prescribed oxycodone. He was given printed and verbal instructions and discharged home. Procedures Abscess I/D Site: face Side (if applicable): left Local Anesthetic: lidocaine 2% and with epi Amount of anesthesia used (mL): 3 Technique: needle aspiration Amount of fluid expressed (mL): 0 Complications: other (None) Discharge Plan Discharge Clinical Impression: Cellulitis of face Patient Disposition: Home, Self-Care Instructions: Cellulitis (ED) Additional Instructions: Cellulitis Discharge Instructions You have an infection of your skin. This is called cellulitis. This is usually caused by bacteria on your skin that gets under your skin and then causes the infection Take Keflex 500 mg pills, 1 pill 4 times a day for 1 week. This is an antibiotic that should help your body fight off the infection. Keep the area of cellulitis elevated to help reduce swelling in the infected area and this helps with the healing process Also apply a heating pad on low or a warm compress for 15 minutes, 4-6 times a day. This will increase the blood flow to the area and will bring white blood cells to the area which will help your body fight off the infection. Take ibuprofen 200 mg pills, 3 pills every 6 hours as needed for pain. Take Tylenol (acetaminophen) 500 mg pills, 2 pills every 4-6 hours as needed for pain. For pain not relieved by ibuprofen or Tylenol take oxycodone 5 mg pills, 1 pill every 4 hours as needed for pain. Do not drive or work while taking this medication since they can cause sleepiness. Oxycodone is a narcotic medication that can be addicting. If you are concerned about addiction you can ask the pharmacist for less pills or do not get this prescription filled. Signs of worsening infection include fever, chills, weakness, increased pain, increased redness, increased swelling or red streaks going away from the area of infection. If you develop any of these symptoms or any other symptoms that are concerning to you, see your doctor immediately or return to the Emergency Department. Follow up with your doctor in 3 days for a recheck Please read the other printed instructions that we printed for you. Prescriptions: New cephalexin 500 mg capsule 500 mg PO QID 7 Days Qty: 28 0RF oxycodone 5 mg tablet 5 mg PO Q4H PRN (Reason: pain) Qty: 10 0RF Rx Instructions: Patient may request partial fill; Partial Fill upon patient request. No Action tamsulosin [Flomax] 0.4 mg capsule 0.4 mg PO DAILY Qty: 10 0RF oxycodone-acetaminophen [Percocet] 5-325 mg tablet 1 tab PO Q8H PRN (Reason: pain) Qty: 15 0RF Rx Instructions: partial filling upon pt request ibuprofen 800 mg tablet 800 mg PO TID PRN (Reason: pain) Qty: 20 0RF
[2022-05-20] MEDS: Ibuprofen 600 MG TABLET PO (08:11)
[2022-05-20] MEDS: cephALEXin 500 MG CAPSULE PO (08:11)
[2022-05-20 08:16] VITALS: BP 122/79; PULSE 79; RESP 18; O2SAT 98
== END 2022-05-20 08:17 | disposition home or self-care (01) ==
PROVIDERS: Emergency Provider Emergency Medicine Emergency Medical Services; PCP Internal Medicine
DX: L03.211 Cellulitis of face (principal)
CPT/HCPCS: 10160; 99284

== ENCOUNTER 2022-08-09 17:49 | Emergency (ER) | payer OTHER, SELFPAY ==
--- NOTE | 2022-08-09 17:51 | ECG_ITS ---
Test Reason : CHEST PAIN Blood Pressure : / mmHG Vent. Rate : 107 BPM Atrial Rate : 107 BPM P-R Int : 154 ms QRS Dur : 092 ms QT Int : 326 ms P-R-T Axes : 038 063 021 degrees QTc Int : 435 ms Sinus tachycardia Intra-ventricular conduction delay Otherwise normal ECG When compared with ECG of 30-APR-2022 12:48, No significant change was found Referred By: Generic ED Physician Electronically Signed By:JEFF FUNEZ MD
[2022-08-09 17:55] VITALS: BP 139/76; PULSE 110; RESP 18; TEMP 36.7; O2SAT 98; BMI 25.7
== END 2022-08-09 22:23 | disposition left against medical advice (07) ==
LOC: HO.ED 22:19
PROVIDERS: Emergency Provider Emergency Medicine; PCP Internal Medicine
DX: R00.2 Palpitations (principal); F41.9 Anxiety disorder, unspecified
CPT/HCPCS: 36415; 71045; 80048; 84484; 85025; 93005; 99283

== ENCOUNTER 2022-08-09 22:36 | Emergency (ER) | payer OTHER, SELFPAY ==
--- NOTE | ~2022-08-09 | XR_ITS ---
EXAMINATION: XR CHEST CLINICAL INFORMATION: Chest pain COMPARISON: 04/30/2022 TECHNIQUE: Frontal view of the chest was obtained. FINDINGS: No significant abnormality is noted involving the heart, lungs, mediastinum, bony thorax or soft tissues. XR/XR chest 1V IMPRESSION: Unremarkable examination.
[2022-08-09 22:45] VITALS: BP 138/79; PULSE 91; RESP 16; TEMP 36.4; O2SAT 97; BMI 27.4
[2022-08-09 23:10] LABS: MANUAL DIFF FLAG NO
[2022-08-09 23:12] LABS: Basophils Percent Auto 0.4 % (0-2); Eosinophils Absolute Auto 0.2 X10*3/uL (0.0-0.4); Eosinophils Percent Auto 3.1 % (0-4); Hematocrit 48.5 % (42.0-52.0); Hemoglobin 16.2 g/dl (14.0-18.0); Imm Gran Abs Auto 0.01 X10*3/uL (0.00-0.03); Imm Gran Pct Auto 0.1 % (0.0-0.4); Lymphocytes Absolute Auto 2.9 X10*3/uL (1.2-4.9); Lymphocytes Percent Auto 43.4 % (20-40); Mean Corpuscular HGB Conc 33.4 g/dl (31.0-36.0); Mean Corpuscular Hemoglobin 28.7 pg (27.0-33.0); Mean Corpuscular Volume 85.8 fL (80.0-98.0); Mean Platelet Volume 8.8 fL (9.4-12.4); Monocytes Absolute Auto 0.5 X10*3/uL (0.1-1.2); Neutrophils Absolute Auto 3.1 x10*3/uL (2.0-8.3); Platelet Count 389 X10*3/uL (160-400); Red Blood Count 5.65 X10*6/uL (4.60-5.80); Red Cell Distribution Width 12.7 % (11.0-16.0); White Blood Count 6.7 X10*3/uL (4.8-10.8)
[2022-08-09 23:21] VITALS: BP 102/65; PULSE 80; RESP 17; TEMP 36.6; O2SAT 99
[2022-08-09 23:27] LABS: Anion Gap 15 (12-20); Blood Urea Nitrogen 15 mg/dL (9-16); Calcium 9.3 mg/dL (8.4-10.2); Carbon Dioxide 25 mmol/L (22-29); Chloride 104 mmol/L (96-108); Creatinine Clr Calc Pharmacy 102.6; Estimated Glomerular Filt Rate > 60; Glucose Random 116 mg/dL (60-115); Potassium 3.8 mmol/L (3.3-5.1); Sodium 140 mmol/L (135-145)
[2022-08-09 23:33] LABS: Troponin-I High Sensitivity < 3.5 ng/L (<3.5-35.0)
--- NOTE | 2022-08-10 00:18 | ED_ITS ---
HPI - Chest Pain General Chief Complaint: Chest Pain Stated Complaint: chest pain Time Seen by Provider: 08/09/22 23:29 Source: patient Mode of arrival: ambulatory History of Present Illness HPI narrative: 37-year-old male presents with complaints of 3-4 years of intermittent heart racing and palpitations that he states has been worked up with a Holter monitor and nothing was found?. Patient states that he was driving home this evening when all the sudden he felt his heart racing, fullness in his ears, states that he got home and found that his blood pressure was elevated and then he became dizzy and started sweating. He denies any recent illnesses or heart issues as a child. He states he has received medication for anxiety previously and that it did help, but ?I just do not understand?. Related Data Previous Rx's Medication Instructions Recorded ibuprofen 800 mg tablet 800 mg PO TID PRN pain #20 tabs 10/21/21 oxycodone-acetaminophen 5 mg-325 1 tab PO Q8H PRN pain #15 tabs 10/21/21 mg tablet (Percocet) tamsulosin 0.4 mg capsule (Flomax) 0.4 mg PO DAILY #10 caps 10/21/21 cephalexin 500 mg capsule 500 mg PO QID 7 days #28 caps 05/20/22 oxycodone 5 mg tablet 5 mg PO Q4H PRN pain #10 tabs 05/20/22 hydroxyzine HCl 25 mg tablet 25 mg PO TID PRN anxiety #14 tabs 08/10/22 Allergies Allergy/AdvReac Type Severity Reaction Status Date / Time No Known Allergies Allergy Verified 10/21/21 04:47 [No Known Allergies*] Review of Systems Review of Systems: Pertinent positives and negatives as stated in HPI 10 point review of systems is otherwise negative. FORMERLY [facility] Past Medical History Source: nursing notes reviewed Medical History Anxiety Renal stones Surgical History Hx of cystoscopy Social History Social History Alcohol intake: unknown Patient Tobacco Use Status: Tobacco use Unknown Advance Directives: No Physical Exam Vital Signs: Vital Signs: Last Vital Signs Temp 97.8 F 08/09/22 23:21 Pulse 80 08/09/22 23:21 Resp 17 08/09/22 23:21 BP 102/65 08/09/22 23:21 Pulse Ox 99 08/09/22 23:21 O2 Del Method 08/09/22 23:21 BMI result Body Mass Index 27.4 VITAL SIGNS: Reviewed. GENERAL: Well developed, well nourished, in no acute distress. HEAD: Normocephalic/atraumatic EYES: PERRLA, EOMI EARS: Ext canals without abnormality OROPHARYNX: no oral lesions noted, posterior pharynx clear LUNGS: Normal breath sounds. No adventitious sounds or accessory muscle use. SpO2<99> CARDIOVASCULAR: Regular rate and rhythm without noted murmurs ABDOMEN: Soft, non-tender, non-distended with bowel sounds. MUSCULOSKELETAL: No tenderness, deformities, or effusions noted on gross inspection. EXTREMITIES: No cyanosis, clubbing or edema. SKIN: Inspection of the skin reveals no rashes NEUROLOGIC: Alert and oriented x 4. Strength and sensation to light touch were grossly intact x 4. Course Course Course Narrative: 37-year-old male with history and clinical presentation after review of all investigations there are no acute findings to better explain patient's presentation. No clinical suspicion for PE. All results and findings discussed with patient at bedside and discuss the possibility of anxiety and will restart patient on p.r.n. hydroxyzine for development of symptoms and recommended that he follow-up with his primary care provider. MDM - Chest Pain Lab Data Result diagrams: 08/09/22 23:05 08/09/22 23:05 Labs: Lab Results 08/09/22 08/09/22 08/09/22 Range/Units 23:05 23:05 23:05 WBC 6.7 (4.8-10.8) X10*3/uL RBC 5.65 (4.60-5.80) X10*6/uL Hgb 16.2 (14.0-18.0) g/dl Hct 48.5 (42.0-52.0) % MCV 85.8 (80.0-98.0) fL MCH 28.7 (27.0-33.0) pg MCHC 33.4 (31.0-36.0) g/dl RDW 12.7 (11.0-16.0) % Plt Count 389 D (160-400) X10*3/uL MPV 8.8 L (9.4-12.4) fL Immature Gran % (Auto) 0.1 (0.0-0.4) % Neut % (Auto) 46.0 (45-73) % Lymph % (Auto) 43.4 H (20-40) % [place] % (Auto) 7.0 (2-11) % Eos % (Auto) 3.1 (0-4) % Baso % (Auto) 0.4 (0-2) % Lymph # (Auto) 2.9 (1.2-4.9) X10*3/uL [place] # (Auto) 0.5 (0.1-1.2) X10*3/uL Eos # (Auto) 0.2 (0.0-0.4) X10*3/uL Baso # (Auto) 0.0 (0.0-0.2) X10*3/uL Abs Immat Gran (auto) 0.01 (0.00-0.03) X10*3/uL Absolute Neuts (auto) 3.1 (2.0-8.3) x10*3/uL Absolute Nucleated RBC 0.000 (0.0-0.012) X10*3/uL Nucleated RBC % (auto) 0.0 (0.0-0.2) /100WBC Sodium 140 (135-145) mmol/L Potassium 3.8 (3.3-5.1) mmol/L Chloride 104 (96-108) mmol/L Carbon Dioxide 25 (22-29) mmol/L Anion Gap 15 (12-20) BUN 15 (9-16) mg/dL Creatinine 0.90 (0.5-1.4) mg/dL Estim Creat Clear Calc 102.6 Estimated GFR > 60 Random Glucose 116 H (60-115) mg/dL Calcium 9.3 (8.4-10.2) mg/dL Troponin I High Sens < 3.5 (<3.5-35.0) ng/L Discharge Plan Discharge Clinical Impression: Anxiety, Atypical chest pain Patient Disposition: Home, Self-Care Instructions: Noncardiac Chest Pain (ED), Anxiety (ED), Panic Attack (ED) Additional Instructions: 1. You received a prescription for a medication that will help with your symptoms. 2. I still strongly recommend that you follow-up with your primary care provider for further evaluation and outpatient management. Return to the ER for worsening symptoms. Prescriptions: New hydroxyzine HCl 25 mg tablet 25 mg PO TID PRN (Reason: anxiety) Qty: 14 0RF No Action tamsulosin [Flomax] 0.4 mg capsule 0.4 mg PO DAILY Qty: 10 0RF oxycodone-acetaminophen [Percocet] 5-325 mg tablet 1 tab PO Q8H PRN (Reason: pain) Qty: 15 0RF Rx Instructions: partial filling upon pt request ibuprofen 800 mg tablet 800 mg PO TID PRN (Reason: pain) Qty: 20 0RF cephalexin 500 mg capsule 500 mg PO QID 7 Days Qty: 28 0RF oxycodone 5 mg tablet 5 mg PO Q4H PRN (Reason: pain) Qty: 10 0RF Rx Instructions: Patient may request partial fill; Partial Fill upon patient request. Referrals: Rachid Jarrett III, MD [Primary Care Provider] - Interventions: LWBS Worksheet Last Done: 08/09/22 22:54
[2022-08-10 01:04] VITALS: BP 102/66; PULSE 94; RESP 18; O2SAT 98
== END 2022-08-10 01:08 | disposition home or self-care (01) ==
PROVIDERS: Emergency Provider Student in an Organized Health Care Education/Training Program; PCP Internal Medicine
DX: F41.9 Anxiety disorder, unspecified (principal); R07.89 Other chest pain
CPT/HCPCS: 36415; 71045; 80048; 84484; 85025; 99283; 99284

== ENCOUNTER 2022-09-15 06:08 | Day surgery (SDC) | payer OTHER, SELFPAY ==
--- NOTE | ~2022-09-15 | CT_ITS ---
EXAMINATION: CT ABDOMEN AND PELVIS WITH CONTRAST CLINICAL INFORMATION: Abdominal flank pain COMPARISON: None TECHNIQUE: Multidetector volumetric images were obtained from the superior aspect of the liver through the pubic symphysis following administration 85 mL of Omnipaque 350 intravenous contrast. Sagittal and coronal reformatted images were obtained on the technologist's workstation. Oral contrast: No This CT examination was performed using dose optimization techniques as appropriate, variously including the following: *Automated exposure control *Adjustment of mA and/or kV according to patient size (this includes techniques or standardized protocols for targeted exams where dose is matched to indication/reason for exam; i.e. extremities or head) *Use of iterative reconstruction technique DLP: 523 mGy-cm FINDINGS: LUNG BASES: The visualized lung bases are unremarkable. LIVER, GALLBLADDER, AND BILIARY TREE: The liver is normal in size, shape, and attenuation. There is a punctate 6 mm hypodensity in right hepatic lobe. The gallbladder is unremarkable with no evidence of radiopaque gallstones, gallbladder wall thickening, or obvious pericholecystic inflammatory changes. PANCREAS: Unremarkable. SPLEEN: Unremarkable. ADRENAL GLANDS: Unremarkable. KIDNEYS AND URETERS: The kidneys are normal in size, shape, and attenuation. There are multiple bilateral radiopaque renal calculi more numerous on the left side. There are multiple clusters of radiopaque calculi in lower pole with the largest calculi in lower pole left kidney measures 6 mm and approximately 10.7 cm from posterior skin line. There is a 9 mm obstructive right proximal ureter radiopaque calculi with moderate hydronephrosis. There is no left-sided hydronephrosis. BLADDER: The bladder is mildly distended.. GASTROINTESTINAL TRACT: There is scattered stool and gas seen throughout the colon without significant distention. There is mild nonspecific mural thickening involving the left transverse and ascending colon without pericolic stranding. Appendix is not visualized. The small bowel loops are normal caliber. The stomach is nondistended. ABDOMINAL WALL: No significant hernia is appreciated. LYMPH NODES: Normal. VASCULAR: Unremarkable. PELVIC VISCERA: The prostate gland is moderately enlarged. The periprostatic fat planes are preserved. No abnormal pelvic or inguinal lymphadenopathy seen. OSSEOUS STRUCTURES: No aggressive lytic or sclerotic process seen. CT/CT abdomen pelvis w IV con IMPRESSION: 1. 9 mm obstructive right proximal ureter radiopaque calculi with moderate hydronephrosis. 2. Bilateral nephrolithiasis. 3. Nonspecific mild mural thickening involving the left transverse and ascending colon without pericolic stranding. 4. Tiny hypodensity right hepatic lobe probable cyst. Fleischner guidelines were followed.
--- NOTE | ~2022-09-15 | FL_ITS ---
EXAMINATION: XR FLUOROSCOPY WITH IMAGES CLINICAL INFORMATION: Stent placement. COMPARISON: CT scan of 09/15/2022. TECHNIQUE: Fluoroscopy Supervised By: Dr. Juan Contreras. Fluoroscopy Time: 16.2 seconds. Cumulative Dose: 4.74 mGy. Images: 3. FINDINGS: Imaging demonstrates placement of a right ureteral stent. FL/FL guidance in OR IMPRESSION: Intraoperative fluoroscopy for urologic procedure.
[2022-09-15 06:13] VITALS: BP 130/81; PULSE 82; RESP 18; TEMP 37.1; O2SAT 98; BMI 26.6
[2022-09-15 06:37] LABS: MANUAL DIFF FLAG NO
[2022-09-15 06:39] LABS: Basophils Percent Auto 0.6 % (0-2); Eosinophils Absolute Auto 0.2 X10*3/uL (0.0-0.4); Eosinophils Percent Auto 3.3 % (0-4); Hematocrit 48.8 % (42.0-52.0); Hemoglobin 16.5 g/dl (14.0-18.0); Imm Gran Abs Auto 0.01 X10*3/uL (0.00-0.03); Imm Gran Pct Auto 0.2 % (0.0-0.4); Lymphocytes Absolute Auto 1.6 X10*3/uL (1.2-4.9); Lymphocytes Percent Auto 31.2 % (20-40); Mean Corpuscular HGB Conc 33.8 g/dl (31.0-36.0); Mean Corpuscular Hemoglobin 29.1 pg (27.0-33.0); Mean Corpuscular Volume 86.1 fL (80.0-98.0); Mean Platelet Volume 9.1 fL (9.4-12.4); Monocytes Absolute Auto 0.4 X10*3/uL (0.1-1.2); Monocytes Percent Auto 7.9 % (2-11); Neutrophils Absolute Auto 2.9 x10*3/uL (2.0-8.3); Neutrophils Percent Auto 56.8 % (45-73); Platelet Count 275 X10*3/uL (160-400); Red Blood Count 5.67 X10*6/uL (4.60-5.80); Red Cell Distribution Width 13.2 % (11.0-16.0); White Blood Count 5.1 X10*3/uL (4.8-10.8)
[2022-09-15 06:55] LABS: Alanine Aminotransferase 46 U/L (0-40); Albumin Level 4.4 g/dL (3.5-5.0); Alkaline Phosphatase 98 U/L (39-117); Anion Gap 12 (12-20); Aspartate Amino Transferase 22 U/L (5-37); Bilirubin Total 2.1 mg/dL (0.0-1.0); Blood Urea Nitrogen 11 mg/dL (9-16); Carbon Dioxide 27 mmol/L (22-29); Chloride 105 mmol/L (96-108); Creatinine Clr Calc Pharmacy 96.2; Estimated Glomerular Filt Rate > 60; Glucose Random 104 mg/dL (60-115); Potassium 4.1 mmol/L (3.3-5.1); Sodium 140 mmol/L (135-145); Total Protein 6.8 g/dL (6.5-8.0)
--- NOTE | 2022-09-15 08:22 | ED.ABDPAIN ---
HPI - Abdominal Pain General Chief Complaint: Abdominal Pain Stated Complaint: kidney stones? Time Seen by Provider: 09/15/22 08:16 Source: patient Mode of arrival: ambulatory Limitations: no limitations History of Present Illness HPI narrative: Patient is a 37-year-old male who presents to emergency department with complaints of right lower quadrant abdominal/right flank pain. Onset of symptoms was 1 week ago. He reports that it feels similar to a prior kidney stone he is experienced in the past. He states that he has passed some on his own previously, but has also required stenting previously. Has associated nausea and intermittent hematuria. Denies fevers, chills, vomiting, upper or left-sided abdominal pain, dysuria, radiation of pain, diarrhea, constipation. Related Data Home Medications Medication Instructions Recorded Confirmed ibuprofen 200 mg tablet 200 mg PO Q6H PRN Pain (Scale 09/15/22 09/15/22 Score 1-3) Allergies Allergy/AdvReac Type Severity Reaction Status Date / Time No Known Allergies Allergy Verified 10/21/21 04:47 [No Known Allergies*] Review of Systems Review of Systems Constitutional : No Weight loss, No Fever, No Chills ENT/Mouth :? No sore throat, No Rhinorrhea Eyes: No Swelling, No Redness Cardiovascular : No Chest Pain, No SOB, No Edema Respiratory : No Cough, No Sputum, No Wheezing Gastrointestinal : Positive Nausea, no Vomiting, no Diarrhea, positive abdominal pain, positive flank pain, No Hematochezia, No Melena Genitourinary : No Dysuria, No Urinary Frequency, positive Hematuria, No Urgency? Musculoskeletal : No joint pain, No Myalgias, No Joint Swelling Skin : No Skin Lesions, No rash Yes all other systems are reviewed and are negative [facility] Past Medical History Attestation statement: The following information was validated with the patient. Source: old records reviewed Medical History (Updated 09/15/22 @ 17:37 by Virginia David CNP) Anxiety Renal stones Surgical History Hx of cystoscopy Social History Social History Alcohol intake: unknown Patient Tobacco Use Status: Tobacco use Unknown Smoked in Last 30 Days: No Use of substances other than those prescribed or required for medical reasons: No Advance Directives: No Physical Exam ED Vital Signs: Vital Signs - 24 hr 09/15/22 06:13 09/15/22 11:26 Temperature 98.7 F 98.0 F Pulse Rate 82 91 Respiratory Rate 18 20 Blood Pressure 130/81 121/65 Pulse Oximetry 98 99 Oxygen Delivery Method Room Air Room Air BMI result Body Mass Index 26.6 Appearance: Alert.?Oriented to person, place and time. No acute distress.?Normal affect. Eyes: Pupils equal, round and reactive to light.? ENT: Pharynx normal.?? Neck: Normal inspection.? Neck supple.?? CVS: Heart sounds normal. Normal heart rate and rhythm.? Pulses normal.?? Respiratory: No respiratory distress.? Lung sounds clear to auscultation bilaterally?? Abdomen: Soft a with right lower quadrant tenderness upon palpation, no rebound tenderness. Normoactive bowel sounds. Positive right CVA tenderness. Skin: Skin warm and dry.? Normal skin color.? Normal skin turgor.?? Extremities: No lower extremity edema.? Neuro: Moves all extremities spontaneously. Sensation intact bilaterally. Ambulates with normal steady gait. Course Course Course Narrative: 11:[address] reveals a 9mm obstructive right proximal ureter calculi with moderate hydronephrosis and bilateral nephrolithiasis. Consult with Urology Dr. Contreras, patient will require procedure patient advised of these findings. Will keep NPO at this time into evaluation. Continues to have pain 6/10, will receive morphine 4 mg IV. Reevaluation(s) Reevaluation #1: Patient admitted under urology service. Medical Decision Making Medical Decision Making MDM Narrative: Patient is a 37-year-old male with a past medical history of nephrolithiasis and anxiety. Presenting today for right lower abdominal/flank pain reportedly consistent with prior kidney stones. Progressively worsening over the past week. History and physical examination most concerning for renal colic secondary to calculi, although he does have tenderness in the right lower quadrant cannot completely exclude appendicitis. Reviewed labs obtained from triage CBC and CMP are overall unremarkable. Urinalysis on obtained at this point. Will obtain UA, CT of the abdomen and pelvis with IV contrast, 1 L normal saline IV, ondansetron 4 mg IV for nausea, ketorolac 30 mg IV for pain. Disposition pending results. Differential Diagnosis Differential Diagnoses: The differential diagnosis associated with the presentation includes (Appendicitis, nephrolithiasis, ureteral calculi, hydronephrosis nonobstructive stone, urinary tract infection, pyelonephritis.) Consult Healthcare Provider Management of the patient was discussed with: Mat Packer (Urology) Spoke with Dr. Contreras regarding current patient's status and CT, Dr. Contreras advised that he will require procedure, he will come to evaluate patient. Lab Data MDM Lab Attestation statement: I reviewed the patient's lab results. Result Diagrams: 09/15/22 06:33 09/15/22 06:33 Labs: Lab Results 09/15/22 09/15/22 09/15/22 Range/Units 06:33 06:33 09:57 WBC 5.1 (4.8-10.8) X10*3/uL RBC 5.67 (4.60-5.80) X10*6/uL Hgb 16.5 (14.0-18.0) g/dl Hct 48.8 (42.0-52.0) % MCV 86.1 (80.0-98.0) fL MCH 29.1 (27.0-33.0) pg MCHC 33.8 (31.0-36.0) g/dl RDW 13.2 (11.0-16.0) % Plt Count 275 D (160-400) X10*3/uL MPV 9.1 L (9.4-12.4) fL Immature Gran % (Auto) 0.2 (0.0-0.4) % Neut % (Auto) 56.8 (45-73) % Lymph % (Auto) 31.2 (20-40) % [place] % (Auto) 7.9 (2-11) % Eos % (Auto) 3.3 (0-4) % Baso % (Auto) 0.6 (0-2) % Lymph # (Auto) 1.6 (1.2-4.9) X10*3/uL [place] # (Auto) 0.4 (0.1-1.2) X10*3/uL Eos # (Auto) 0.2 (0.0-0.4) X10*3/uL Baso # (Auto) 0.0 (0.0-0.2) X10*3/uL Abs Immat Gran (auto) 0.01 (0.00-0.03) X10*3/uL Absolute Neuts (auto) 2.9 (2.0-8.3) x10*3/uL Absolute Nucleated RBC 0.000 (0.0-0.012) X10*3/uL Nucleated RBC % (auto) 0.0 (0.0-0.2) /100WBC Sodium 140 (135-145) mmol/L Potassium 4.1 (3.3-5.1) mmol/L Chloride 105 (96-108) mmol/L Carbon Dioxide 27 (22-29) mmol/L Anion Gap 12 (12-20) BUN 11 (9-16) mg/dL Creatinine 0.88 (0.5-1.4) mg/dL Estim Creat Clear Calc 96.2 Estimated GFR > 60 Random Glucose 104 (60-115) mg/dL Calcium 9.0 (8.4-10.2) mg/dL Total Bilirubin 2.1 H (0.0-1.0) mg/dL AST 22 (5-37) U/L ALT 46 H (0-40) U/L Alkaline Phosphatase 98 (39-117) U/L Total Protein 6.8 (6.5-8.0) g/dL Albumin 4.4 (3.5-5.0) g/dL Urine Color Yellow Urine Appearance Clear Urine pH 7.0 (5.0-9.0) Ur Specific [place] 1.020 (1.005-1.025) Urine Protein Negative (Neg-Trace) mg/dL Urine Glucose (UA) Negative (Negative) mg/dL Urine Ketones Negative (Negative) mg/dL Urine Blood Moderate (2+) H (Negative) Urine Nitrite Negative (Negative) Ur Leukocyte Esterase Negative (Negative) Urine RBC >20 H (0-2) /HPF Urine WBC 0-5 (0-5) /HPF Ur Squamous Epith Cells 0-2 (0-2) /HPF Urine Bacteria None Seen (None Seen) Hyaline Casts 0-2 (0-2) /LPF COVID-19 (JOSE J) (Negative) COVID-19 Clin Com 09/15/22 Range/Units 12:05 WBC (4.8-10.8) X10*3/uL RBC (4.60-5.80) X10*6/uL Hgb (14.0-18.0) g/dl Hct (42.0-52.0) % MCV (80.0-98.0) fL MCH (27.0-33.0) pg MCHC (31.0-36.0) g/dl RDW (11.0-16.0) % Plt Count (160-400) X10*3/uL MPV (9.4-12.4) fL Immature Gran % (Auto) (0.0-0.4) % Neut % (Auto) (45-73) % Lymph % (Auto) (20-40) % [place] % (Auto) (2-11) % Eos % (Auto) (0-4) % Baso % (Auto) (0-2) % Lymph # (Auto) (1.2-4.9) X10*3/uL [place] # (Auto) (0.1-1.2) X10*3/uL Eos # (Auto) (0.0-0.4) X10*3/uL Baso # (Auto) (0.0-0.2) X10*3/uL Abs Immat Gran (auto) (0.00-0.03) X10*3/uL Absolute Neuts (auto) (2.0-8.3) x10*3/uL Absolute Nucleated RBC (0.0-0.012) X10*3/uL Nucleated RBC % (auto) (0.0-0.2) /100WBC Sodium (135-145) mmol/L Potassium (3.3-5.1) mmol/L Chloride (96-108) mmol/L Carbon Dioxide (22-29) mmol/L Anion Gap (12-20) BUN (9-16) mg/dL Creatinine (0.5-1.4) mg/dL Estim Creat Clear Calc Estimated GFR Random Glucose (60-115) mg/dL Calcium (8.4-10.2) mg/dL Total Bilirubin (0.0-1.0) mg/dL AST (5-37) U/L ALT (0-40) U/L Alkaline Phosphatase (39-117) U/L Total Protein (6.5-8.0) g/dL Albumin (3.5-5.0) g/dL Urine Color Urine Appearance Urine pH (5.0-9.0) Ur Specific [place] (1.005-1.025) Urine Protein (Neg-Trace) mg/dL Urine Glucose (UA) (Negative) mg/dL Urine Ketones (Negative) mg/dL Urine Blood (Negative) Urine Nitrite (Negative) Ur Leukocyte Esterase (Negative) Urine RBC (0-2) /HPF Urine WBC (0-5) /HPF Ur Squamous Epith Cells (0-2) /HPF Urine Bacteria (None Seen) Hyaline Casts (0-2) /LPF COVID-19 (JOSE J) Negative (Negative) COVID-19 Clin Com See Note Radiology Impression Discussion of test interpretation with radiology: I have reviewed the radiologist's reading. Radiologist Impression: CT/CT abdomen pelvis w IV con IMPRESSION: 1.? 9 mm obstructive right proximal ureter radiopaque calculi with moderate hydronephrosis. 2.? Bilateral nephrolithiasis. 3.? Nonspecific mild mural thickening involving the left transverse and ascending colon without pericolic stranding. 4.? Tiny hypodensity right hepatic lobe probable cyst. Medications Administered Generic Name Dose Route Start Last Admin Trade Name Freq PRN Reason Stop Dose Admin Acetaminophen 975 mg 09/15/22 17:00 09/15/22 17:12 Acetaminophen 325 Mg Tablet PO 975 mg TID TAZ Administration Sodium Chloride 1,000 mls @ 100 mls/hr 09/15/22 17:00 09/15/22 17:13 Ns IVCONT 100 mls/hr .Q10H TAZ Administration Discontinued Medications Generic Name Dose Route Start Last Admin Trade Name Freq PRN Reason Stop Dose Admin Sodium Chloride 1,000 mls @ 999 mls/hr 09/15/22 08:45 09/15/22 11:07 Ns IV 09/15/22 09:45 Infused .Q1H1M TAZ Infusion Iohexol 100 ml 09/15/22 09:53 09/15/22 09:54 Iohexol 350 Mg/Ml 100 Ml Infus..Btl IV 09/15/22 09:54 85 ml ONCE ONE Administration Ketorolac Tromethamine 30 mg 09/15/22 08:32 09/15/22 09:00 Ketorolac Tromethamine 30 Mg/Ml Vial IVPUSH 09/15/22 08:33 30 mg ONCE ONE Administration Morphine Sulfate 4 mg 09/15/22 11:20 09/15/22 11:57 Morphine Sulfate 4 Mg/Ml Cartridge IVPUSH 09/15/22 11:21 4 mg ONCE ONE Administration Protocol Morphine Sulfate 4 mg 09/15/22 16:01 09/15/22 17:12 Morphine Sulfate 4 Mg/Ml Cartridge IVPUSH 09/15/22 16:02 4 mg ONCE ONE Administration Protocol Ondansetron HCl 4 mg 09/15/22 08:32 09/15/22 09:00 Ondansetron Hcl 4 Mg/2 Ml Vial IVPUSH 09/15/22 08:33 4 mg ONCE ONE Administration Discharge Plan Discharge Clinical Impression: Hydronephrosis with urinary obstruction due to ureteral calculus Patient Disposition: Admitted As Inpatient
[2022-09-15] MEDS: 0.9 % Sodium Chloride 1,000 ML 999 ML IV (08:59)
[2022-09-15] MEDS: ondansetron HCL 4 MG/2 ML VIAL IVPUSH (09:00)
[2022-09-15] MEDS: Ketorolac Tromethamine 30 MG/ML VIAL IVPUSH (09:00)
[2022-09-15] MEDS: iohexoL 350 MG/ML 100 ML INFUS..BTL IV (09:54)
[2022-09-15 10:08] LABS: Appearance Urine Clear; Color Urine Yellow; Glucose Urine UA Negative (Negative); Leukocyte Esterase Urine Negative (Negative); Nitrite Urine Negative (Negative); UMIC TRIGGER UACC YES; Urine Blood Moderate (2+) (Negative); Urine Ketones Negative (Negative); Urine Protein Negative (Neg-Trace)
[2022-09-15 10:10] LABS: Bacteria Urine None Seen (None Seen); Hyaline Casts Urine 0-2 /LPF (0-2); RBC Urine >20 /HPF (0-2); Squamous Epithelial Cell Urine 0-2 /HPF (0-2); WBC Urine 0-5 /HPF (0-5)
[2022-09-15 11:26] VITALS: BP 121/65; PULSE 91; RESP 20; TEMP 36.7; O2SAT 99
[2022-09-15] MEDS: Morphine Sulfate 4 MG/ML CARTRIDGE IVPUSH ×2 (11:57→17:12)
[2022-09-15 12:29] LABS: COVID-19 Test Negative (Negative); IDNOW Serial# 16C4AD1C
--- NOTE | 2022-09-15 16:55 | PHA.MEDREC ---
Pharmacy Consult ? Medication Reconciliation Pharmacy has completed the medication reconciliation.
--- NOTE | 2022-09-15 17:08 | PM.HPGS ---
History of Present Illness History of Present Illness Date of Service: 09/15/22 Chief complaint: right ureteric stone Narrative: John Schulz is a 37 year old male 2 days of right flank pain presents to hospital with persistent nausea Imaging shows proximal 9 mm stone with right hydroureteronephrosis creatinine 0.8 WBC 5.1 prior stone history and stone passage. Has not followed up previously. Admit with stenting tomorrow Review of Systems Constitutional: Constitutional: Reports as per HPI and Reports no additional constitutional complaints Cardiovascular: Cardiovascular: Reports as per HPI and Reports no additional cardiovascular complaints Respiratory: Respiratory: Reports as per HPI and Reports no additional respiratory complaints Gastrointestinal: Gastrointestinal: Reports as per HPI and Reports no additional gastrointestinal complaints Genitourinary: Genitourinary: Reports as per HPI Musculoskeletal: Musculoskeletal: Reports no additional musculoskeletal complaints and Reports as per HPI Neurologic: Reports system reviewed and no additional complaints, except as documented and Reports as per HPI PMFSH Past Medical History Medical History (Updated 09/15/22 @ 17:09 by Juan Contreras MD) Anxiety Renal stones Surgical History Surgical History Hx of cystoscopy Social History Social History Alcohol intake: unknown Patient Tobacco Use Status: Tobacco use Unknown Smoked in Last 30 Days: No Use of substances other than those prescribed or required for medical reasons: No Advance Directives: No Meds Allergies Allergy/AdvReac Type Severity Reaction Status Date / Time No Known Allergies Allergy Verified 10/21/21 04:47 [No Known Allergies*] Active Medications: Current Medications Acetaminophen (Acetaminophen 325 Mg Tablet) 975 mg PO TID TAZ Docusate Sodium (Docusate Sodium 100 Mg Capsule) 100 mg PO BID TAZ Sodium Chloride (Ns) 1,000 mls @ 100 mls/hr IVCONT .Q10H TAZ Ketorolac Tromethamine (Ketorolac Tromethamine 15 Mg/Ml Vial) 15 mg IVPUSH Q6H TAZ Morphine Sulfate (Morphine Sulfate 4 Mg/Ml Cartridge) 4 mg IVPUSH QID PRN; Protocol PRN Reason: Pain, Moderate (Pain Scale 4-6 Sodium Chloride (0.9 % Sodium Chloride Flush 3 Ml Syringe) 3 ml IVFLUSH QSHIFT [facility] Home Medications Medication Instructions Recorded Confirmed Last Taken Type ibuprofen 200 mg tablet 200 mg PO Q6H PRN Pain (Scale 09/15/22 09/15/22 09/15/22 History Score 1-3) Physical Exam Vital Signs: Vital Signs: Last Vital Signs Temp 98.0 F 09/15/22 11:26 Pulse 91 09/15/22 11:26 Resp 20 09/15/22 11:26 BP 121/65 09/15/22 11:26 Pulse Ox 99 09/15/22 11:26 O2 Del Method 09/15/22 11:26 BMI result Body Mass Index 26.6 Const: General: cooperative, healthy appearing, comfortable and no acute distress Orientation/consciousness: patient oriented x3 HEENT: Face and sinus: Yes normal facial exam Mouth: moist mucous membranes Neck: Neck: Yes normal visual inspection, Yes full ROM and Yes trachea midline Chest: Chest palpation & inspection: normal inspection of the chest Resp: Effort & Inspection: normal respiratory effort, able to speak in complete sentences and no respiratory distress GI: Inspection: Yes normal to inspection Back/Spine/Pelvis: Cervical Spine: normal cervical lordosis Thoracic/Lumbar Spine: thoracic and lumbar spine normal to inspection Skin: General skin exam: no rashes or lesions noted Neuro: General: patient oriented x3, tone normal and moves all extremities Extrem: General: Yes normal to inspection and Yes capillary refill normal Results Results Labs: Short CBC 09/15/22 Range/Units 06:33 WBC 5.1 (4.8-10.8) X10*3/uL Hgb 16.5 (14.0-18.0) g/dl Hct 48.8 (42.0-52.0) % Plt Count 275 D (160-400) X10*3/uL BMP 09/15/22 06:33 Sodium 140 Potassium 4.1 Chloride 105 Carbon Dioxide 27 BUN 11 Creatinine 0.88 Calcium 9.0 Liver Function 09/15/22 Range/Units 06:33 Total Bilirubin 2.1 H (0.0-1.0) mg/dL AST 22 (5-37) U/L ALT 46 H (0-40) U/L Alkaline Phosphatase 98 (39-117) U/L Albumin 4.4 (3.5-5.0) g/dL Urine 09/15/22 Range/Units 09:57 Urine Color Yellow Urine Appearance Clear Urine pH 7.0 (5.0-9.0) Ur Specific [place] 1.020 (1.005-1.025) Urine Protein Negative (Neg-Trace) mg/dL Urine Glucose (UA) Negative (Negative) mg/dL Assessment and Plan (1) Renal stones: Status: Acute Plan Risks, benefits and alternatives to therapy were discussed. These include but are not limited to infection, bleeding, damage to local organs and tissues, need for further interventions. Anesthetic risks regarding cardiac arrhythmia, blood clots, and potential mortality were discussed. The patient understands the typical recovery time and the outpatient nature of the procedure. After consideration of these risks the patient gives full informed consent and they wish to move ahead with the procedure. cystoscopy, right retrograde, right stent placement Time Spent With Patient Time: Total time managing care of this patient today ____ minutes. Quality Stroke Does the patient have a stroke diagnosis?: No VTE Prior VTE?: No VTE Risk Level:: Surgical - low VTE Device Contraindication: Procedure Contraindicated VTE Drug Contraindication: N/A - Med Ordered Procedures Date of Service Date of Service: 09/15/22
[2022-09-15] MEDS: Acetaminophen 325 MG TABLET 975 MG PO ×2 (17:12→20:40)
[2022-09-15] MEDS: 0.9 % Sodium Chloride 1,000 ML 100 ML IVCONT (17:13)
[2022-09-15 17:30] VITALS: BP 120/79; PULSE 92; RESP 18; TEMP 36.6; O2SAT 97
--- NOTE | 2022-09-15 17:31 | PC.NURSE ---
pt a&ox3, vss, pt reporting increasing RUQ pain - currently 8/10, medicated per provider order, ivf running, pt on regular diet until [address] Hwang, given applesauce and christie geovanna, confirmed kitchen received regular diet order.
[2022-09-15] MEDS: Ketorolac Tromethamine 15 MG/ML VIAL IVPUSH (17:55)
[2022-09-15] MEDS: Docusate Sodium 100 MG CAPSULE PO (20:40)
--- NOTE | 2022-09-15 20:45 | PC.NURSE ---
Report given to Cyndie WILLIS. Pt will be brought to overflow by a transporter when they are available
[2022-09-15 21:10] VITALS: BP 108/70; PULSE 68; RESP 18; TEMP 36.6; O2SAT 98
--- NOTE | 2022-09-15 21:20 | PC.NURSE ---
Care of patient assumed in ED Overflow. Patient is alert, oriented x4, and overall well-appearing. He is provided with call edwards and informed of its use. He currently denies pain (states he received medication earlier that took his pain away for now). He denies nausea. He understands plan to be NPO at midnight for kidney stone removal procedure in AM. Vitals are stable. Patient has no needs or concerns at this time.
[2022-09-16] VITALS (9 sets, daily range): BP systolic 96–142; BP diastolic 49–77; PULSE 64–98; RESP 14–18; TEMP 36.4–37.7; O2SAT 95–100
[2022-09-16] MEDS: 0.9 % Sodium Chloride Flush 3 ML SYRINGE IVFLUSH
[2022-09-16] MEDS: 0.9 % Sodium Chloride 1,000 ML 100 ML IVCONT ×2 (03:53→14:09)
[2022-09-16] MEDS: Ketorolac Tromethamine 15 MG/ML VIAL IVPUSH ×3 (05:22→12:48)
--- NOTE | 2022-09-16 11:29 | MHC.CM.PN ---
PT REPORTS HE LIVES WITH HIS AND IS INDEPENDENT WITH CARE PT WORKS AND DRIVES PT HAS NO HOME SERVICES AND NO DME PT IS NOT COIVD [facility] HE DECLINES TO COMPLETE A HCP PCP: ÁLVARO BARBOZA DCP HOME NO SERVICES PT WILL DRIVE HIMSELF AT DC
--- NOTE | 2022-09-16 16:33 | P.CONAN_ITS ---
HPI - Anesthesia Eval Consult details Narrative: cysto for hydronephrosis secondary to kidneystone PMFSH Active Problems Active Problems: All Active Problems (Updated 09/15/22 @ 17:37 by Virginia David CNP) Hydronephrosis with urinary obstruction due to ureteral calculus (Acute) Renal stones (Acute) COVID-19 (Acute) Past Medical History Medical History (Updated 09/15/22 @ 17:37 by Virginia David CNP) Anxiety Renal stones Family History Family history of problems with anesthesia: No Surgical History Surgical History Hx of cystoscopy History of Problems with Anesthesia: No Social History Social History Alcohol intake: unknown Patient Tobacco Use Status: Former Tobacco user service: No Current occupational status: employed Meds Allergies Allergy/AdvReac Type Severity Reaction Status Date / Time No Known Allergies Allergy Verified 10/21/21 04:47 [No Known Allergies*] Active Medications: Current Medications Acetaminophen (Acetaminophen 325 Mg Tablet) 975 mg PO TID [facility] Last Admin: 09/16/22 15:21 Dose: Not Given Docusate Sodium (Docusate Sodium 100 Mg Capsule) 100 mg PO BID [facility] Last Admin: 09/16/22 08:31 Dose: Not Given Sodium Chloride (Ns) 1,000 mls @ 100 mls/hr IVCONT .Q10H [facility] Last Admin: 09/16/22 14:09 Dose: 100 mls/hr Ketorolac Tromethamine (Ketorolac Tromethamine 15 Mg/Ml Vial) 15 mg IVPUSH Q6H [facility] Last Admin: 09/16/22 12:48 Dose: 15 mg Morphine Sulfate (Morphine Sulfate 4 Mg/Ml Cartridge) 4 mg IVPUSH QID PRN; Protocol PRN Reason: Pain, Moderate (Pain Scale 4-6 Sodium Chloride (0.9 % Sodium Chloride Flush 3 Ml Syringe) 3 ml IVFLUSH QSHIFT [facility] Last Admin: 09/16/22 08:30 Dose: Not Given Home Medications Medication Instructions Recorded Confirmed Last Taken Type ibuprofen 200 mg tablet 200 mg PO Q6H PRN Pain (Scale 09/15/22 09/15/22 09/15/22 History Score 1-3) Exam Exam Date and Time: September 16, 2022 1633 Height,Weight and Vital Signs: Height 5 ft 4 in Weight 70.307 kg Last Vital Signs Temp 100 F 09/16/22 16:21 Pulse 73 09/16/22 16:21 Resp 18 09/16/22 16:21 BP 142/70 H 09/16/22 16:21 Pulse Ox 95 09/16/22 16:21 O2 Del Method 09/16/22 16:19 Pertinent Lab Results Pertinent Lab Results: Laboratory Tests 09/15/22 09/15/22 09/15/22 06:33 06:33 09:57 WBC 5.1 RBC 5.67 Hgb 16.5 Hct 48.8 MCV 86.1 MCH 29.1 MCHC 33.8 RDW 13.2 Plt Count 275 D MPV 9.1 L Immature Gran % (Auto) 0.2 Neut % (Auto) 56.8 Lymph % (Auto) 31.2 [place] % (Auto) 7.9 Eos % (Auto) 3.3 Baso % (Auto) 0.6 Lymph # (Auto) 1.6 [place] # (Auto) 0.4 Eos # (Auto) 0.2 Baso # (Auto) 0.0 Abs Immat Gran (auto) 0.01 Absolute Neuts (auto) 2.9 Absolute Nucleated RBC 0.000 Nucleated RBC % (auto) 0.0 Sodium 140 Potassium 4.1 Chloride 105 Carbon Dioxide 27 Anion Gap 12 BUN 11 Creatinine 0.88 Estim Creat Clear Calc 96.2 Estimated GFR > 60 Random Glucose 104 Calcium 9.0 Total Bilirubin 2.1 H AST 22 ALT 46 H Alkaline Phosphatase 98 Total Protein 6.8 Albumin 4.4 Urine Color Yellow Urine Appearance Clear Urine pH 7.0 Ur Specific [place] 1.020 Urine Protein Negative Urine Glucose (UA) Negative Urine Ketones Negative Urine Blood Moderate (2+) H Urine Nitrite Negative Ur Leukocyte Esterase Negative Urine RBC >20 H Urine WBC 0-5 Ur Squamous Epith Cells 0-2 Urine Bacteria None Seen Hyaline Casts 0-2 COVID-19 (JOSE J) COVID-19 Clin Com 09/15/22 12:05 WBC RBC Hgb Hct MCV MCH MCHC RDW Plt Count MPV Immature Gran % (Auto) Neut % (Auto) Lymph % (Auto) [place] % (Auto) Eos % (Auto) Baso % (Auto) Lymph # (Auto) [place] # (Auto) Eos # (Auto) Baso # (Auto) Abs Immat Gran (auto) Absolute Neuts (auto) Absolute Nucleated RBC Nucleated RBC % (auto) Sodium Potassium Chloride Carbon Dioxide Anion Gap BUN Creatinine Estim Creat Clear Calc Estimated GFR Random Glucose Calcium Total Bilirubin AST ALT Alkaline Phosphatase Total Protein Albumin Urine Color Urine Appearance Urine pH Ur Specific [place] Urine Protein Urine Glucose (UA) Urine Ketones Urine Blood Urine Nitrite Ur Leukocyte Esterase Urine RBC Urine WBC Ur Squamous Epith Cells Urine Bacteria Hyaline Casts COVID-19 (JOSE J) Negative COVID-19 Clin Com See Note Airway Mallampati Class: II TM Dist: >3cm Neck ROM: Full Heart: RR Lungs: CTA Assessment and Plan Final Anesthetic Review Family History of Problems with Anesthesia: No History of Problems with Anesthesia: No ASA Class: II Final Preanesthetic Review: No Changes in Pt Med Stat, Meds/Allgs Chart Reviewed, Consent Obtained/Reviewed and Anes Risks/Benef Reviewed Patient Risk: Low Procedure Risk: Low Anesthetic Plan Anesthetic Plan: GA and Agree w/ Assess. and Plan Disposition: Standard PACU
--- NOTE | 2022-09-16 16:46 | MHC.SHP ---
Pre-Procedural Eval Section A Date of Service: 09/16/22 The patient is an INPATIENT: Yes Changes since office visit: No Cold of Flu in the past 2 weeks, No New Medical Problems, No Changes in Medication and No Patient answered all questions The History & Physical has been completed within 30 days and I have reviewed it.: Yes Section B Chief Complaint: right ureteric stone Allergies: Allergies Allergy/AdvReac Type Severity Reaction Status Date / Time No Known Allergies Allergy Verified 10/21/21 04:47 [No Known Allergies*] Plan Diagnosis/Plan: Unchanged (cysto, right retrograde, stent) I have reviewed the history and physical and performed a pertinent physical examination on my patient. No changes have occurred unless specified. Time Spent With Patient Time: Total time managing care of this patient today ____ minutes.
--- NOTE | 2022-09-16 17:25 | P.OP_ITS ---
Operative Note Operative Note Date of Service: 09/16/22 Narrative: PreOperative Diagnosis: right ureteric stone Post Operative Diagnosis: right ureteric stone Procedure: cystoscopy, right retrograde, right stent placement Surgeon: Dr Juan Contreras Anesthesia: Sunday ramirez Indications for procedure: obstructing right ureteric stone with pain Procedure: After informed consent was verified the patient was brought to the operating room and placed in a supine position. Anesthesia was administered per protocol. The patient was placed in modified dorsal lithotomy position and prepped and draped in a sterile fashion. A safety pause time-out was performed. Laterality of procedure and antibiotics were confirmed, appropriate imaging was available A 22 Albanian cystoscope was introduced per urethra. No abnormality was noted of urethra or bladder. Both ureteric orifices were seen in a normal position. The right ureter was cannulated with an open ended catheter and a retrograde examination was performed. filling defects seen at proximal right ureter. . A Sensor guidewire was placed under fluoroscopy and a good coil was seen within the renal pelvis. Stone moved back into kidney at time of sensor guidewire placement. A Six Albanian by 26 cm double J stent was advanced over the wire and up to the level of the renal pelvis under fluoroscopic and direct visualization. The stent was seen with appropriate coil within the renal pelvis and in the bladder after deployment. The patient tolerated the procedure well and was transferred in a stable condition to the recovery area. Pathology: none Drains: drains above
--- NOTE | 2022-09-16 17:27 | PM.DS ---
DS: Providers Provider Date of Service: 09/16/22 Date of admission: 09/15/22 16:45 Primary care physician: Rachid Jarrett III, MD DS: Diagnosis Discharge Diagnosis (1) Renal stones: Status: Acute DS: Summary Hospital Course Hospital Course: admitted Remained in overflow procedure performed Status at Discharge Functional status at discharge: independent ambulation Overall status at discharge: patient is back to baseline Time Spent with Patient Time attestation: Total time managing care of this patient today ____ minutes. Discharge coordination time: Less than 30 minutes Quality: Safe Use of Opioids Does Pt have an Active Cancer Diagnosis on the Problem List?: No Quality: Stroke Does the patient have a stroke diagnosis?: No Physical Exam Vital Signs: Vital Signs: Last Vital Signs Temp 100 F 09/16/22 16:21 Pulse 73 09/16/22 16:21 Resp 18 09/16/22 16:21 BP 142/70 H 09/16/22 16:21 Pulse Ox 95 09/16/22 16:21 O2 Del Method 09/16/22 16:19 BMI result Body Mass Index 26.6 Const: General: cooperative, healthy appearing, comfortable and no acute distress Orientation/consciousness: patient oriented x3 HEENT: Face and sinus: Yes normal facial exam Mouth: moist mucous membranes Neck: Neck: Yes normal visual inspection, Yes full ROM and Yes trachea midline Chest: Chest palpation & inspection: normal inspection of the chest Resp: Effort & Inspection: normal respiratory effort, able to speak in complete sentences and no respiratory distress GI: Inspection: Yes normal to inspection Back/Spine/Pelvis: Cervical Spine: normal cervical lordosis Thoracic/Lumbar Spine: thoracic and lumbar spine normal to inspection Skin: General skin exam: no rashes or lesions noted Neuro: General: patient oriented x3, tone normal and moves all extremities Extrem: General: Yes normal to inspection and Yes capillary refill normal DS: Data Imaging CT scan - abdomen: Attestation: I personally reviewed and interpreted this imaging study as follows: Radiologist's impression: ITS Impressions Abdomen/Pelvis CT 09/15/22 09:52 IMPRESSION: 1. 9 mm obstructive right proximal ureter radiopaque calculi with moderate hydronephrosis. 2. Bilateral nephrolithiasis. 3. Nonspecific mild mural thickening involving the left transverse and ascending colon without pericolic stranding. 4. Tiny hypodensity right hepatic lobe probable cyst. Fleischner guidelines were followed. Discharge Plan Discharge Anticipated Discharge Date/Time: 09/16/22 17:29 Patient Disposition: Home, Self-Care Discharge Diagnosis: ureteric stones Referrals: Rachid Jarrett III, MD [Primary Care Provider] - None Discharge Medications: New tramadol 50 mg tablet 50 mg PO Q6H PRN (Reason: pain (scale score 1-3)) Qty: 8 0RF tamsulosin 0.4 mg capsule 0.4 mg PO BEDTIME 14 Days Qty: 14 0RF phenazopyridine [Pyridium] 100 mg tablet 100 mg PO TID PRN (Reason: Spasm) 4 Days Qty: 12 0RF oxybutynin chloride 5 mg tablet 5 mg PO BID PRN (Reason: bladder spasms) Qty: 7 0RF Continued ibuprofen 200 mg Tablet 200 mg PO Q6H PRN (Reason: Pain (Scale Score 1-3)) Discharge Orders: Discharge Order (Routine); Ordered 09/16/22 Ordered By: Juan Contreras Diet: Advance to usual diet Activity on Discharge: As tolerated Stand Alone Forms: Patient Portal Discharge page Care Plan Goals: [facility] Concerns: stones Plan of Treatment: stones Assessment: stones
[2022-09-16] MEDS: traMADoL HCL 50 MG TABLET PO (18:01)
[2022-09-16] MEDS: Acetaminophen 325 MG TABLET 975 MG PO (18:02)
[2022-09-16] MEDS: Phenazopyridine HCL 100 MG TABLET PO (18:02)
== END 2022-09-16 19:00 | disposition home or self-care (01) ==
LOC: HO.ED 08:32 → HO.EDOVER 17:37 → HO.SSS 09-17 09:28
PROVIDERS: Nurse Practitioner Family; Emergency Provider Student in an Organized Health Care Education/Training Program; PCP Internal Medicine; Visit Provider Urology
PROC: (CPT 52332; principal; 2022-09-16 16:00)
DX: N13.2 Hydronephrosis with renal and ureteral calculous obstruction (principal); Z87.442 Personal history of urinary calculi; R31.9 Hematuria, unspecified; F41.1 Generalized anxiety disorder; Z79.1 Long term (current) use of non-steroidal anti-inflammatories (NSAID); Z20.822 Contact with and (suspected) exposure to COVID-19
CPT/HCPCS: 52332; 36415; 74177; 80053; 81001; 85025; 87635; 96361; 96374; 96375; 96376; 99285; C1758; C1769; C2617; J1885; J1956; J2250; J2270; J2370; J2405; J3010; Q9967

== ENCOUNTER 2022-09-28 07:51 | Day surgery (SDC) | payer OTHER, SELFPAY ==
--- NOTE | 2022-09-24 09:39 | HO.ANESPROP2 ---
HPI - Anesthesia Eval Consult details Narrative: 37yo M for Right Cystoscopy, Ureteroroscopy, Retro, Laser possible stent exchange s/p cysto, stent 09/17/22 with GA-LMA 4 PMFSH Active Problems Active Problems: All Active Problems (Updated 09/24/22 @ 00:02 by Kayla Balderas) COVID-19 (Acute) Renal stones (Acute) Past Medical History Medical History Anxiety Renal stones Family History Family history of problems with anesthesia: No Surgical History Surgical History History of cystoscopy Hx of cystoscopy History of Problems with Anesthesia: No Social History Social History Alcohol intake: unknown Patient Tobacco Use Status: Former Tobacco user Quit Date: 2 yrs ago service: No Current occupational status: employed Meds Allergies Allergy/AdvReac Type Severity Reaction Status Date / Time No Known Allergies Allergy Verified 09/28/22 10:18 [No Known Allergies*] Home Medications Medication Instructions Recorded Confirmed Last Taken Type ibuprofen 200 mg tablet 200 mg PO Q6H PRN Pain (Scale 09/15/22 09/28/22 09/24/22 History Score 1-3) Exam Exam Date and Time: September 24, 2022 0939 Pertinent Lab Results Pertinent Lab Results: Laboratory Tests 09/15/22 09/15/22 06:33 06:33 WBC 5.1 Hgb 16.5 Hct 48.8 Plt Count 275 D Sodium 140 Potassium 4.1 Chloride 105 Carbon Dioxide 27 BUN 11 Creatinine 0.88 Narrative Narrative: EKG 08/2022 Vent. Rate : 107 BPM ? ? Atrial Rate : 107 BPM ?? P-R Int : 154 ms? QRS Dur : 092 ms ? ? QT Int : 326 ms ? ? ? P-R-T Axes : 038 063 021 degrees ?? QTc Int : 435 ms ? Sinus tachycardia Intra-ventricular conduction delay Otherwise normal ECG When compared with ECG of 30-APR-2022 12:48, No significant change was found Assessment and Plan Assessment Anesthesia Assessment: Chart Reviewed Final Anesthetic Review Family History of Problems with Anesthesia: No History of Problems with Anesthesia: No
[2022-09-28] VITALS (17 sets, daily range): BP systolic 101–130; BP diastolic 59–89; PULSE 61–98; RESP 14–16; TEMP 36.6–36.9; O2SAT 89–100; BMI 27.4
--- NOTE | ~2022-09-28 | FL_ITS ---
EXAMINATION: XR FLUOROSCOPY WITH IMAGES CLINICAL INFORMATION: Urinary tract calculi. Right hydronephrosis secondary to proximal ureteral calculus. COMPARISON: CT abdomen and pelvis with contrast 09/15/2022 TECHNIQUE: Fluoroscopy Supervised By: Dr. Juan Contreras. Fluoroscopy Time: 10 seconds. Cumulative Dose: 2.44 mGy. Images: 1. FINDINGS: Proximal end of a catheter/ureteral stent overlies right renal fossa. There is likely calculi overlying right lower pole. FL/FL guidance in OR IMPRESSION: Fluoroscopy for urologic procedure.
[2022-09-28] MEDS: Lactated Ringers 1,000 ML 100 ML IVCONT (10:39)
--- NOTE | 2022-09-28 12:32 | MHC.SHP ---
Pre-Procedural Eval Section A Date of Service: 09/28/22 The patient is an INPATIENT: No Changes since office visit: No Cold of Flu in the past 2 weeks, No New Medical Problems, No Changes in Medication and No Patient answered all questions The History & Physical has been completed within 30 days and I have reviewed it.: Yes Section B Chief Complaint: Calculus of kidney Details of Present Illness: right proximal ureteric stone Relevant Family History (Specify if Yes): No Relevant Social History: None Present Medications: see Short Stay Collaborative assessment Medical History: No relevant PMH History of Previous Operations: Relevant previous surgery/procedure and date(s) Allergies: Allergies Allergy/AdvReac Type Severity Reaction Status Date / Time No Known Allergies Allergy Verified 09/28/22 10:18 [No Known Allergies*] Review of Systems Sugical H&P ROS: Negative: Constitution, Cardiovascular, Respiratory, Neurological, Psychiatric, Hem-Onc, Allergic/Immunologic, Gastrointestinal, Genitourinary, Musculoskeletal, Integumentary, Endocrine and Eyes/Ears/Nose/Throat Exam Surgical H&P Exam: Normal: HEENT, Normal: Heart, Normal: Lungs, Normal: Extremities, Normal: Abdomen, Normal: Skin and Normal: Neurological Plan Diagnosis/Plan: Unchanged ( right retrograde, ureteroscopy, laser lithotripsy, stent placement) I have reviewed the history and physical and performed a pertinent physical examination on my patient. No changes have occurred unless specified. Time Spent With Patient Time: Total time managing care of this patient today ____ minutes.
--- NOTE | 2022-09-28 13:23 | W.PM.OPN ---
Operative Note Operative Note Date of Service: 09/28/22 Narrative: PreOperative Diagnosis: right renal stone Post Operative Diagnosis: right renal stone Procedure: - cystoscopy, right retrograde, removal right stent - right dilatation of ureteric orifice under fluoroscopy - right ureteroscopy, laser lithotripsy, stone basketing Surgeon: Dr Juan Contreras Anesthesia: General Indications for procedure: stent placed approximately 10 days ago for proximal right renal stone. Here for definitive procedure. Procedure: After informed consent was verified patient was brought to the operating placed in supine position. Anesthesia was administered per protocol. Patient was placed in modified dorsal lithotomy position and prepped and draped in a sterile fashion. Safety pause time-out and side of surgery confirmed. Antibiotics confirmed. 22 Swedish cystoscope was inserted per urethra. Bladder was normal in its entirety. Both ureteric orifices were in normal position. Right stent emerging from right ureteric office The right ureteric orifice was cannulated and a retrograde examination was performed. contrast seen around the stent going up into the right kidney. No obvious filling defect.. A Sensor guidewire was placed up to the level of the renal pelvis under fluoroscopy. The right stent emerging from the right ureteric orifice was grasped andThe rigid cystoscope was removed and the inner cannula of ureteric access sheath was used under fluoroscopy to dilate the ureteric orifice. The ureteric access sheath was placed and the inner cannula with access wire removed. The digital flexible ureteral scope was placed. submucosal stones noted throughout the renal pelvis. Using the 262 micron laser the submucosal stones were lasered and released. 8 mm stone was encountered in lower pole. Using the 0 tip basket the stone was repositioned in the upper pole. Using the laser the stone was broken into small pieces. Using the basket the small pieces were removed with 4 separate passes. There were other small fragments but these are expected to pass. Since he already had a stent is ureter was dilated. The ureteric access sheath was removed under vision and no damage was noted to the ureter. The bladder was emptied. The patient tolerated the procedure well and was extubated in the operating room, and transferred in stable condition to the recovery area. Pathology: Stones Drains: no drain
[2022-09-28] MEDS: fentaNYL citrate/PF 100 MCG/2 ML VIAL 25 MCG IVPUSH ×4 (13:45→14:25)
[2022-09-28] MEDS: Phenazopyridine HCL 100 MG TABLET PO (13:49)
[2022-09-28] MEDS: oxyCODONE HCl Immed Release 5 MG TABLET 10 MG PO (13:49)
[2022-09-28] MEDS: Ketorolac Tromethamine 15 MG/ML VIAL IVPUSH (13:55)
[2022-09-28] MEDS: Acetaminophen 1,000 MG/100 ML PIGGYBACK 400 MG IV (13:56)
[2022-09-28] MEDS: HYDROmorphone HCl 0.5 MG/0.5 ML SYRINGE 0.25 MG IVPUSH (15:00)
[2022-10-01 15:48] LABS: Stone Source RIGHT RENAL STONE
== END 2022-09-28 17:15 | disposition home or self-care (01) ==
PROVIDERS: PCP Internal Medicine; Visit Provider Urology
PROC: (CPT 52353; principal; 2022-09-28 12:00)
DX: N20.0 Calculus of kidney (principal); F41.1 Generalized anxiety disorder; Z79.1 Long term (current) use of non-steroidal anti-inflammatories (NSAID); Z79.899 Other long term (current) drug therapy; Z87.891 Personal history of nicotine dependence
CPT/HCPCS: 52353; 52352; 82365; 88300; C1758; C1769; C1894; J0131; J1170; J1885; J1956; J2250; J2405; J2550; J3010; Q9967

== ENCOUNTER 2022-12-10 10:30 | Outpatient (REF) | payer OTHER, SELFPAY ==
--- NOTE | ~2022-12-10 | US_ITS ---
EXAMINATION: US RETROPERITONEAL LIMITED (RENAL ONLY) CLINICAL INFORMATION: Calculus of kidney. COMPARISON: CT abdomen and pelvis 09/15/2022. TECHNIQUE: Real-time imaging of the kidneys. FINDINGS: RIGHT KIDNEY: 10.5 x 4.8 x 6.2 cm (SAG x AP x TRV). The kidney is normal in size, contour, and echogenicity. Renal cortical thickness is normal. No calculi or focal parenchymal lesions. No hydronephrosis. LEFT KIDNEY: 11.9 x 5.5 x 5.5 cm (SAG x AP x TRV). The kidney is normal in size, contour, and echogenicity. Renal cortical thickness is normal. No focal parenchymal lesions or hydronephrosis. 3 mm nonobstructing calculus in the mid kidney. 5 mm nonobstructing calculus in the lower kidney. US/US renal BI IMPRESSION: Nonobstructing calculi in the left kidney.
== END 2022-12-10 10:31 | disposition home or self-care (01) ==
LOC: HO.US 10:30
PROVIDERS: PCP Internal Medicine; Visit Provider Urology
DX: N20.0 Calculus of kidney (principal)
CPT/HCPCS: 76775

== ENCOUNTER → 2022-12-23 13:55 | Outpatient (BNVA) | payer OTHER, SELFPAY | PROVIDERS: PCP Internal Medicine; Visit Provider Urology | DX: Z13.89 Encounter for screening for other disorder (principal) ==

== ENCOUNTER 2023-06-24 13:54 | Emergency (ER) | payer MEDICAID, SELFPAY ==
--- NOTE | ~2023-06-24 | CT_ITS ---
EXAMINATION: CT HEAD WITHOUT CONTRAST CLINICAL INFORMATION: Headache. Dizziness. COMPARISON: None available. TECHNIQUE: Contiguous axial imaging was performed from the skull base to vertex without intravenous administration of contrast. This CT examination was performed using dose optimization techniques as appropriate, variously including the following: *Automated exposure control *Adjustment of mA and/or kV according to patient size (this includes techniques or standardized protocols for targeted exams where dose is matched to indication/reason for exam; i.e. extremities or head) *Use of iterative reconstruction technique DLP: 647 mGy-cm FINDINGS: The lateral, third and fourth ventricles are normally outlined. The cortical sulci and basal cisterns are normally as well. There is no acute territorial defect, hemorrhage or midline shift. The extra-axial spaces are unremarkable. Calvarium: Intact. Maxillofacial sinuses and mastoids: There is ethmoid sinus mucosal thickening. The remaining visualized maxillofacial sinuses and mastoids are clear. CT/CT head/brain wo IV con IMPRESSION: No acute intracranial pathology.
[2023-06-24 14:03] VITALS: BP 121/78; PULSE 81; RESP 18; TEMP 36.7; O2SAT 98; BMI 27.5
--- NOTE | 2023-06-24 14:04 | ED_ITS ---
HPI - General Adult General Chief complaint: Dizziness Stated complaint: Blurred Vision R Eye Pressure in Head No Injury Time Seen by Provider: 06/24/23 21:54 Source: patient Mode of arrival: ambulatory Limitations: no limitations History of Present Illness HPI narrative: Patient complaining of heaviness in the head dizziness for last 2 weeks get worse on movements no nausea no vomiting no fever no chills no light sensitivity Related Data Previous Rx's Medication Instructions Recorded pyridoxine (vitamin B6) 50 mg 50 mg PO DAILY 90 days #90 tabs 12/23/22 tablet meclizine 25 mg tablet 25 mg PO TID PRN dizziness #20 tabs 06/25/23 Allergies Allergy/AdvReac Type Severity Reaction Status Date / Time No Known Allergies Allergy Verified 12/23/22 14:20 [No Known Allergies*] Review of Systems 2 Review of Systems: Yes all other systems are reviewed and are negative [facility] Past Medical History Medical History Renal stones Anxiety Surgical History History of cystoscopy Hx of cystoscopy Social History Social History Alcohol intake: current Alcohol intake frequency: holidays/special occasions only Alcohol type: beer Patient Tobacco Use Status: Former Tobacco user Quit Date: 2 yrs ago Smoked in Last 30 Days: No Use of substances other than those prescribed or required for medical reasons: No Advance Directives: No Advance Directives Information Provided: Yes service: No Current occupational status: employed Physical Exam ED Vital Signs: Vital Signs - 24 hr 06/24/23 14:03 06/24/23 23:22 Temperature 98.0 F 97.8 F Pulse Rate 81 61 Respiratory Rate 18 18 Blood Pressure 121/78 110/61 Pulse Oximetry 98 98 Oxygen Delivery Method Room Air Room Air BMI result Body Mass Index 27.5 Appearance: Alert. Oriented X3. No acute distress. Eyes: PERRLA, No Nystagmus ENT: Pharynx normal. Oral Mucosa moist Neck: Normal inspection. Neck supple. CVS: Normal heart rate and rhythm. Pulses normal. Respiratory: No respiratory distress. Equal air entry bilateral, no wheezing/rales/rhonchi Abdomen: Soft and nontender. Bowel sounds are present, no mass palpable, no CVA tenderness Skin: Skin warm and dry. Normal skin color. Normal skin turgor. Extremities: No lower extremity edema. No calf tenderness Neuro: Oriented X 3. No motor deficit. No sensory deficit.No cerebellar signs , cranial nerves II-XII intact Course Course Course Narrative: 38 y o male presenting for evaluation of dizziness, visual floaters and headache x1 week. Reporting generalized diffuse headache, reporting he feels foggy . Denies head trauma or trauma. Denies nausea, vomiting, fevers, abdominal pain, chest pain and shortness of breath. Plan: labs, visual acuity Medications Administered Discontinued Medications Generic Name Dose Route Start Last Admin Trade Name Freq PRN Reason Stop Dose Admin Meclizine HCl 25 mg 06/24/23 22:14 06/24/23 22:38 Meclizine Hcl 25 Mg Tablet PO 06/24/23 22:15 25 mg ONCE ONE Administration Medical Decision Making Medical Decision Making [facility] Narrative: Patient clinically with benign positional vertigo given meclizine normal labs patient ambulating in steady gait Differential Diagnosis Differential Diagnoses: The differential diagnosis associated with the presentation includes vertigo/vasovagal Lab Data [facility] Lab Attestation statement: I reviewed the patient's lab results. 06/24/23 14:15 06/24/23 14:15 Labs: Lab Results 06/24/23 Range/Units 14:15 WBC 5.3 (4.8-10.8) X10*3/uL RBC 5.74 (4.60-5.80) X10*6/uL Hgb 16.5 (14.0-18.0) g/dl Hct 48.7 (42.0-52.0) % MCV 84.8 (80.0-98.0) fL MCH 28.7 (27.0-33.0) pg MCHC 33.9 (31.0-36.0) g/dl RDW 12.9 (11.0-16.0) % Plt Count 256 (160-400) X10*3/uL MPV 9.5 (9.4-12.4) fL Immature Gran % (Auto) 0.2 (0.0-0.4) % Neut % (Auto) 55.7 (45-73) % Lymph % (Auto) 30.7 (20-40) % [place] % (Auto) 9.2 (2-11) % Eos % (Auto) 3.6 (0-4) % Baso % (Auto) 0.6 (0-2) % Lymph # (Auto) 1.6 (1.2-4.9) X10*3/uL [place] # (Auto) 0.5 (0.1-1.2) X10*3/uL Eos # (Auto) 0.2 (0.0-0.4) X10*3/uL Baso # (Auto) 0.0 (0.0-0.2) X10*3/uL Abs Immat Gran (auto) 0.01 (0.00-0.03) X10*3/uL Absolute Neuts (auto) 3.0 (2.0-8.3) x10*3/uL Absolute Nucleated RBC 0.000 (0.0-0.012) X10*3/uL Nucleated RBC % (auto) 0.0 (0.0-0.2) /100WBC Sodium 140 (135-145) mmol/L Potassium 4.0 (3.3-5.1) mmol/L Chloride 106 (96-108) mmol/L Carbon Dioxide 24 (22-29) mmol/L Anion Gap 14 (12-20) BUN 8 L (9-16) mg/dL Creatinine 0.80 (0.5-1.4) mg/dL Estim Creat Clear Calc 114.3 Estimated GFR > 60 Random Glucose 94 (60-115) mg/dL Calcium 9.2 (8.4-10.2) mg/dL Total Bilirubin 1.6 H (0.0-1.0) mg/dL AST 20 (5-37) U/L ALT 35 (0-40) U/L Alkaline Phosphatase 85 (39-117) U/L Total Protein 7.2 (6.5-8.0) g/dL Albumin 4.4 (3.5-5.0) g/dL Radiology Impression Discussion of test interpretation with radiology: I have reviewed the radiologist's reading. Discharge Plan Discharge Clinical Impression: Benign paroxysmal positional vertigo Patient Disposition: Home, Self-Care Instructions: Benign Paroxysmal Positional Vertigo (ED) Additional Instructions: Care and cautions as advised Meclizine 1 tablet every 8 hours as needed for severe dizziness Prescriptions: New meclizine 25 mg tablet 25 mg PO TID PRN (Reason: dizziness) Qty: 20 0RF No Action pyridoxine (vitamin B6) 50 mg tablet 50 mg PO DAILY 90 Days Qty: 90 1RF
[2023-06-24 14:19] LABS: MANUAL DIFF FLAG NO
[2023-06-24 14:20] LABS: Basophils Percent Auto 0.6 % (0-2); Eosinophils Absolute Auto 0.2 X10*3/uL (0.0-0.4); Eosinophils Percent Auto 3.6 % (0-4); Hematocrit 48.7 % (42.0-52.0); Hemoglobin 16.5 g/dl (14.0-18.0); Imm Gran Abs Auto 0.01 X10*3/uL (0.00-0.03); Imm Gran Pct Auto 0.2 % (0.0-0.4); Lymphocytes Absolute Auto 1.6 X10*3/uL (1.2-4.9); Lymphocytes Percent Auto 30.7 % (20-40); Mean Corpuscular HGB Conc 33.9 g/dl (31.0-36.0); Mean Corpuscular Hemoglobin 28.7 pg (27.0-33.0); Mean Corpuscular Volume 84.8 fL (80.0-98.0); Mean Platelet Volume 9.5 fL (9.4-12.4); Monocytes Absolute Auto 0.5 X10*3/uL (0.1-1.2); Monocytes Percent Auto 9.2 % (2-11); Neutrophils Percent Auto 55.7 % (45-73); Platelet Count 256 X10*3/uL (160-400); Red Blood Count 5.74 X10*6/uL (4.60-5.80); Red Cell Distribution Width 12.9 % (11.0-16.0); White Blood Count 5.3 X10*3/uL (4.8-10.8)
[2023-06-24 14:35] LABS: Alanine Aminotransferase 35 U/L (0-40); Albumin Level 4.4 g/dL (3.5-5.0); Alkaline Phosphatase 85 U/L (39-117); Anion Gap 14 (12-20); Aspartate Amino Transferase 20 U/L (5-37); Bilirubin Total 1.6 mg/dL (0.0-1.0); Blood Urea Nitrogen 8 mg/dL (9-16); Calcium 9.2 mg/dL (8.4-10.2); Carbon Dioxide 24 mmol/L (22-29); Chloride 106 mmol/L (96-108); Creatinine Clr Calc Pharmacy 114.3; Estimated Glomerular Filt Rate > 60; Glucose Random 94 mg/dL (60-115); Sodium 140 mmol/L (135-145); Total Protein 7.2 g/dL (6.5-8.0)
[2023-06-24] MEDS: Meclizine HCl 25 MG TABLET PO (22:38)
[2023-06-24 23:22] VITALS: BP 110/61; PULSE 61; RESP 18; TEMP 36.6; O2SAT 98
== END 2023-06-25 01:49 | disposition home or self-care (01) ==
PROVIDERS: Physician Assistant; Emergency Provider Internal Medicine; PCP Internal Medicine
DX: H81.13 Benign paroxysmal vertigo, bilateral (principal); H53.8 Other visual disturbances; Z79.899 Other long term (current) drug therapy
CPT/HCPCS: 36415; 70450; 80053; 85025; 99284